=== PATIENT | female | born 1980 ===

== ENCOUNTER 2025-03-21 08:02 | Emergency (ER) | payer OTHER, SELFPAY ==
--- NOTE | ~2025-03-21 | CT_ITS ---
EXAMINATION: CT ABDOMEN PELVIS WITH IV CONTRAST HISTORY: abdominal pain COMPARISON: There are no prior studies for comparison. TECHNIQUE: CT scan of the abdomen and pelvis was performed following administration of 85 mL Omnipaque 350 using standard departmental protocol. Coronal and sagittal reformatted images were generated and reviewed. Oral contrast material was not administered at the request of the referring physician. This CT exam was performed with one or more of the following dose reduction techniques: automated exposure control, adjustment of the mA and/or kV according to patient size, use of iterative reconstruction technique. DLP: 957 mGy-cm FINDINGS: LOWER CHEST: The visualized lung bases are clear. There is no pleural effusion. CARDIOVASCULATURE: The heart is normal in size. There is no pericardial effusion. LIVER: The liver is normal in size and contour. There are subcentimeter hypodense foci in the left lobe of the liver and in the inferior right lobe which are too small to accurately characterize. The hepatic and portal veins are patent. GALLBLADDER / BILE DUCTS: The gallbladder is unremarkable. There is no intra or extrahepatic biliary ductal dilatation. SPLEEN: The spleen is normal in size. There is a calcification at the posterior aspect of the spleen. PANCREAS: The pancreas is unremarkable in appearance. ADRENAL GLANDS: Within normal limits. KIDNEYS/RETROPERITONEUM: No renal calculi are identified. There is no hydronephrosis. No renal masses are identified. LYMPH NODES: No abdominal or pelvic lymphadenopathy. VASCULATURE: The abdominal aorta is normal in caliber. MESENTERY/PERITONEUM: No free fluid. No masses. There is no free intraperitoneal gas. STOMACH: The stomach is unremarkable. SMALL BOWEL: The small bowel is normal in caliber. COLON: The colon is unremarkable. APPENDIX: The appendix is surgically absent. URINARY BLADDER/PELVIC ORGANS: The urinary bladder is collapsed, limiting evaluation. IUD is noted in the endometrial cavity of the uterus. The ovaries are unremarkable. BONES / SOFT TISSUES: There is degenerative disc disease of the spine. CT/CT abdomen pelvis w IV con IMPRESSION: Essentially unremarkable contrast-enhanced CT of the abdomen and pelvis. Incidental findings as discussed above. Electronically signed by: Kwabena De La Garza MD 03/21/2025 10:36 AM EDT
--- NOTE | ~2025-03-21 | US_ITS ---
EXAMINATION: US ABDOMEN LIMITED CLINICAL INFORMATION: Right upper quadrant abdominal pain. COMPARISON: Correlated to CT dated March 21, 2025 TECHNIQUE: Real-time ultrasound right upper quadrant abdomen using grayscale technique. Limited to the gallbladder. FINDINGS: Gallbladder is fluid-filled. No pericholecystic fluid collection or gallbladder wall thickening. Common bile duct measures 4 mm. No gross ascites. US/US abdomen limited IMPRESSION: No cholelithiasis. No gross choledocholithiasis. Electronically signed by: Manuel De La Garza MD 03/21/2025 11:50 AM EDT
[2025-03-21 08:24] VITALS: BP 142/80; PULSE 67; RESP 16; TEMP 36.9; O2SAT 99; BMI 44.6
--- NOTE | 2025-03-21 08:45 | ECG_ITS ---
Test Reason : abd pain Blood Pressure : */* mmHG Vent. Rate : 62 BPM Atrial Rate : 62 BPM P-R Int : 134 ms QRS Dur : 86 ms QT Int : 444 ms P-R-T Axes : 46 53 53 degrees QTcB Int : 450 ms Normal sinus rhythm Normal ECG No previous ECGs available Referred By: Yosi Link Electronically Signed By: YVETTE PEDERSEN MD
--- NOTE | 2025-03-21 08:48 | ED_ITS ---
HPI - Abdominal Pain General Chief Complaint: Abdominal Pain Stated Complaint: Abd pain Time Seen by Provider: 03/21/25 08:41 Source: patient Mode of arrival: ambulatory Limitations: no limitations History of Present Illness HPI narrative: This is a 44 years old female patient presented to emergency department with a chief complaint of upper abdominal pain. She has a history of appendectomy in the past, she has a history of QT prolongation she had a cardiac arrest after IV Reglan. MD elicited complaint: abdominal pain Pertinent past history: other ( Appendectomy) Onset (ago): day(s) (3) Location: none Quality: cramping Radiation: epigastric Migration to: no migration Exacerbating factors: nothing Relieving factors: nothing Associated symptoms: denies other symptoms Related Data Previous Rx's ?Medication ?Instructions ?Recorded oxycodone 5 mg tablet 5 mg PO Q6H PRN pain #8 tabs 03/21/25 sucralfate 100 mg/mL oral 5 ml PO QID 10 days #200 mL 03/21/25 suspension (Carafate) Allergies Allergy/AdvReac Type Severity Reaction Status Date / Time metoclopramide [From Reglan] Allergy Unresponsiv Verified 03/21/25 08:29 e ondansetron [From Zofran] Allergy Unresponsiv Verified 03/21/25 08:29 e tramadol Allergy Agitated Verified 03/21/25 08:29 Review of Systems Constitutional: Reports no additional constitutional complaints Reports system reviewed and no additional complaints, except as documented Cardiovascular: Reports no additional cardiovascular complaints [facility] Past Medical History Attestation statement: The following information was validated with the patient. [facility] Narrative: appendectomy, QT prolongation cardiac arrest secondary to IV Reglan Social History Social History Smoked in Last 30 Days: No Use of substances other than those prescribed or required for medical reasons: No Advance Directives: No Advance Directives Information Provided: Yes Patient : No Physical Exam ED Vital Signs: Vital Signs - 24 hr 03/21/25 08:24 03/21/25 12:19 Temperature 98.4 F 98.1 F Pulse Rate 67 65 Respiratory Rate 16 18 Blood Pressure 142/80 H 166/80 H Pulse Oximetry 99 97 Oxygen Delivery Method Room Air Room Air BMI result Body Mass Index 44.6 no acute distress Const General: cooperative Nutritional Appearance: well nourished Orientation/consciousness: patient oriented x3 Limitations: no limitations HENMT Head: Yes normal to inspection Ears: hearing grossly normal bilaterally General nose exam: Normal external nose present Face and sinus: Yes normal facial exam Neck Neck: Yes normal visual inspection Chest Chest palpation & inspection: normal inspection of the chest Resp Effort & Inspection: normal respiratory effort Auscultation: clear to auscultation bilaterally Cardio Jugular venous distension: no JVD Rate: regular rate Rhythm: regular rhythm GI Inspection: Yes normal to inspection Palpation (GI): Soft to palpation Auscultation: normal bowel sounds General: Yes Bimanual renal exam normal bilaterally External Female Exam: normal external appearance Skin General skin exam: no rashes or lesions noted Lesions: no lesions Rashes: no rashes Neuro General: patient oriented x3 Cranial nerves: Yes CN's II-XII intact bilaterally Gait exam (Neuro): Normal gait present Extrem General: Yes normal to inspection Course Reevaluation(s) Reevaluation #1: on re-examination patient is feeling better workup is negative including CT scan of the abdomen and pelvis ultrasound I think she can be discharged home Time: 13:25 Medical Decision Making Medical Decision Making [facility] Narrative: patient is here complaining of abdominal pain, broad differential diagnosis we will do labs CT Differential Diagnosis Differential Diagnoses: The differential diagnosis associated with the presentation includes colitis/ diverticulitis/cholecystitis Admission/Observation Consideration of admission/observation: Escalation of care including admission/observation considered Lab Data MDM Lab Attestation statement: I reviewed the patient's lab results. 03/21/25 08:54 03/21/25 08:54 Labs: Lab Results 03/21/25 03/21/25 Range/Units 08:54 09:57 WBC 9.3 (4.8-10.8) X10*3/uL RBC 4.06 L (4.20-5.50) X10*6/uL Hgb 13.5 (12.0-16.0) g/dl Hct 40.2 (37.0-47.0) % MCV 99.0 H (80.0-98.0) fL MCH 33.3 H (27.0-33.0) pg MCHC 33.6 (31.0-35.0) g/dl RDW 13.6 (11.0-16.0) % Plt Count 194 (160-400) X10*3/uL MPV 10.9 (9.4-12.3) fL Immature Gran % (Auto) 0.3 (0.0-0.4) % Neut % (Auto) 67.0 (45-73) % Lymph % (Auto) 24.6 (20-40) % [place] % (Auto) 5.3 (2-11) % Eos % (Auto) 2.4 (0-4) % Baso % (Auto) 0.4 (0-2) % Lymph # (Auto) 2.3 (1.2-4.9) X10*3/uL [place] # (Auto) 0.5 (0.1-1.2) X10*3/uL Eos # (Auto) 0.2 (0.0-0.4) X10*3/uL Baso # (Auto) 0.0 (0.0-0.2) X10*3/uL Abs Immat Gran (auto) 0.03 (0.00-0.03) X10*3/uL Absolute Neuts (auto) 6.3 (2.0-8.3) x10*3/uL Absolute Nucleated RBC 0.000 (0.0-0.012) X10*3/uL Nucleated RBC % (auto) 0.0 (0.0-0.2) /100WBC Sodium 139 (135-145) mmol/L Potassium 4.1 (3.3-5.1) mmol/L Chloride 105 (96-108) mmol/L Carbon Dioxide 25 (22-29) mmol/L Anion Gap 13 (12-20) BUN 13 (9-16) mg/dL Creatinine 0.72 (0.5-1.4) mg/dL Estim Creat Clear Calc 124.6 Estimated GFR > 60 Random Glucose 103 (60-115) mg/dL Calcium 9.2 (8.4-10.2) mg/dL Total Bilirubin 0.4 (0.0-1.0) mg/dL AST 19 (5-31) U/L ALT 17 (0-31) U/L Alkaline Phosphatase 125 H (39-117) U/L Total Protein 7.0 (6.5-8.0) g/dL Albumin 4.0 (3.5-5.0) g/dL Lipase 12 (8-78) U/L Beta HCG, Quant < 2 mIU/mL Urine Color DK YELLOW Urine Appearance Cloudy Urine pH 6.0 (5.0-9.0) Ur Specific Rosine 1.015 (1.005-1.025) Urine Protein Trace (Neg-Trace) mg/dL Urine Glucose (UA) Negative (Negative) mg/dL Urine Ketones Negative (Negative) mg/dL Urine Blood Large (3+) H (Negative) Urine Nitrite Negative (Negative) Ur Leukocyte Esterase Trace H (Negative) Urine RBC 3-5 H (0-2) /HPF Urine WBC 6-10 (0-5) /HPF Ur Squamous Epith Cells 3-5 (0-2) /HPF Urine Bacteria 2+ (None Seen) Hyaline Casts 0-2 (0-2) /LPF Urine Test NEGATIVE (NEGATIVE) Independent Interpretation I performed an independent interpretation of an: CT Scan Radiology Impression Discussion of test interpretation with radiology: I have reviewed the radiologist's reading. Independent Historian Clinical information obtained from an independent historian. History obtained from or confirmed by: Spouse Medications Administered Discontinued Medications Generic Name Dose Route Start Last Admin Trade Name Freq PRN Reason Stop Dose Admin Hydromorphone HCl 0.5 mg 03/21/25 08:45 03/21/25 09:01 Hydromorphone Hcl 0.5 Mg/0.5 Ml Syringe IVPUSH 03/21/25 08:46 0.5 mg ONCE ONE Administration Protocol Hydromorphone HCl 0.5 mg 03/21/25 09:52 03/21/25 10:02 Hydromorphone Hcl 0.5 Mg/0.5 Ml Syringe IVPUSH 03/21/25 09:53 0.5 mg ONCE ONE Administration Protocol Sodium Chloride 1,000 mls @ 999 mls/hr 03/21/25 08:45 03/21/25 09:50 Ns IVCONT 03/21/25 09:45 Infused .Q1H1M NARAYAN Infusion Iohexol 85 ml 03/21/25 10:17 03/21/25 10:17 Iohexol 350 Mg/Ml 100 Ml Infus..Btl IV 03/21/25 10:18 85 ml ONCE ONE Administration Ketorolac Tromethamine 15 mg 03/21/25 11:42 03/21/25 11:52 Ketorolac Tromethamine 15 Mg/Ml Vial IVPUSH 03/21/25 11:43 15 mg ONCE ONE Administration Sucralfate 1 gm 03/21/25 13:11 03/21/25 13:19 Sucralfate Oral Suspension 1 Gm/10 Ml Oral.Susp PO 03/21/25 13:12 1 gm ONCE ONE Administration Discharge Plan Discharge Clinical Impression: Abdominal pain Patient Disposition: Home, Self-Care Instructions: Abdominal Pain (ED) Additional Instructions: please call GI for follow-up appointment, make sure you take the Protonix that you have at home every day Prescriptions: New sucralfate [Carafate] 100 mg/mL suspension 5 ml PO QID 10 Days Qty: 200 0RF Rx Instructions: swish in mouth and swallow; use after food/drink oxycodone 5 mg tablet 5 mg PO Q6H PRN (Reason: pain) Qty: 8 0RF Rx Instructions: partial filing upon pt request; Partial Fill upon patient request. Referrals: Efraín Ashby MD [Physician] - 3 days Print Language: Luxembourgish
[2025-03-21] MEDS: 0.9 % Sodium Chloride 1,000 ML 999 ML IVCONT (08:55)
[2025-03-21 09:01] LABS: Basophils Percent Auto 0.4 % (0-2); Eosinophils Absolute Auto 0.2 X10*3/uL (0.0-0.4); Eosinophils Percent Auto 2.4 % (0-4); Hematocrit 40.2 % (37.0-47.0); Hemoglobin 13.5 g/dl (12.0-16.0); Imm Gran Abs Auto 0.03 X10*3/uL (0.00-0.03); Imm Gran Pct Auto 0.3 % (0.0-0.4); Lymphocytes Absolute Auto 2.3 X10*3/uL (1.2-4.9); Lymphocytes Percent Auto 24.6 % (20-40); MANUAL DIFF FLAG NO; Mean Corpuscular HGB Conc 33.6 g/dl (31.0-35.0); Mean Corpuscular Hemoglobin 33.3 pg (27.0-33.0); Mean Platelet Volume 10.9 fL (9.4-12.3); Monocytes Absolute Auto 0.5 X10*3/uL (0.1-1.2); Monocytes Percent Auto 5.3 % (2-11); Neutrophils Absolute Auto 6.3 x10*3/uL (2.0-8.3); Platelet Count 194 X10*3/uL (160-400); Red Blood Count 4.06 X10*6/uL (4.20-5.50); Red Cell Distribution Width 13.6 % (11.0-16.0); White Blood Count 9.3 X10*3/uL (4.8-10.8)
[2025-03-21] MEDS: HYDROmorphone HCl 0.5 MG/0.5 ML SYRINGE IVPUSH ×2 (09:01→10:02)
--- OUTSIDE RECORDS SUMMARY | 2025-03-21 09:01 | XMS_ITS | Continuity of Care Document ---
Author Organization [facility] vices Address [address] [place] [address] Phone Care Team Providers Care Training Officer Name Role Phone Unavailable Unavailable Unavailable Allergies, [...] Diagnoses Date Provider Providers Copied on Encounter [facility], [address] [place], [address], [place] tel:[phone] [facility] Adult Medicine No Information 3 No Information [facility], [address] [place] [address], [address], [place] tel:[phone] Conversion PAIN IN JOINT, LOWER LEG 3 No Information [facility], [address] [place], [address], [place] tel:[phone] Conversion No Information 3 No Information [facility], [address] [place] [address], [address], [place] tel:[phone] Conversion No Information 3 No Information [facility], [address] [place] [address], [address], [place] tel:[phone] [facility] Adult Medicine No Information 3 No Information [facility], [address] [place] [address], [address], [place] tel:[phone] Conversion ANXIETY STATE, UNSPECIFIED 2 No Information [facility], [address] [place] [address], [address], [place] tel:[phone] Conversion No Information 2 No Information [facility], [address] [place] [address], [address], [place] tel:[phone] Historic Immunization Location No Information 2 No Information [facility], [address] [place] [address], [address], [place] tel:[phone] Conversion OTHER ACUTE PAIN 2 No Information [facility], [address] [place] [address], [address], [place] tel:[phone] [facility] Adult Medicine No Information 2 No Information [facility], [address] [place] [address], [address], [place] tel:[phone] Conversion LUMBAGO 2 No Information Family History [...]
--- OUTSIDE RECORDS SUMMARY | 2025-03-21 09:01 | XMS_ITS | Clinical Summary ---
Author Organization [facility] Address [address] [place] [address] Care Team Providers Care Collision Center Manager Name Role Phone Unavailable Primary Care Provider Unavailabl e Medical History Medical History Date Comments Cardiac arrest (CMS/HCC V24, CMS/HCC V28) DX:Cardiac arrest (HCC);[facility] ENT:from QT syndrome Social History Tobacco Use Types Packs/Day Years Used Date Smoking Tobacco: Never Assessed Comments Unknown Sex and Gender Information Value Date Recorded Sex Assigned at Not on file Legal Sex Female 7:32 PM EST Gender Identity Not on file Sexual Orientation Not on file Obstetrics History Plan of Treatment Health Maintenance Due Date Last Done Comments Breast Cancer Screening 1979 DTaP,Tdap,and Td Vaccines (1 - Tdap) 1998 Hepatitis B Vaccines (1 of 3 - 19+ 3-dose series) 1998 Cervical Cancer Screening: P ap Smear 2000 COVID-19 Vaccine (2023-2 5 season) 2024 Influenza Vaccine (Season Ended) 2025 HIB Vaccines Aged Out No longer eligi ble based on patient's age to complete this topic HPV Vaccines Aged Out No longer eligi ble based on patient's age to complete this topic Hepatitis A Vaccines Aged Out No long er eligible based on patient's age to complete this topic IPV Vaccines Aged Out No longer eligi ble based on patient's age to complete this topic MMR Vaccines Aged Out No longer eligi ble based on patient's age to complete this topic Meningococcal ACWY Vaccine Aged Out N o longer eligible based on patient's age to complete this topic Meningococcal B Vaccine Aged Out No l onger eligible based on patient's age to complete this topic Pneumococcal Vaccine: Pediat rics (0 to 5 Years) and At-Risk Patients (6 to 64 Years) Aged Out No longer eligible b ased on patient's age to complete this topic RSV Immunization Patients Un roberta 20 months Aged Out No longer eligible b ased on patient's age to complete this topic Varicella Vaccines Aged Out No longer eligible based on patient's age to complete this topic
--- OUTSIDE RECORDS SUMMARY | 2025-03-21 09:01 | XMS_ITS ---
Author Organization [facility] Address [address] [place] [address] Care Team Providers Care Retail Supervisor Name Role Phone AncaamishaStuart gr Unavailable [phone] Manpreet BRIGGS, Juanjo Unavailable Unavailable Juanjo Case Unavailable [phone] Allergies Allergen (clinical drug ingredient) Drug/Non Drug Allergy documented on EMR Reaction Allergy Type Onset Date Status metoclopramide Reglan Unknown Drug Allergy Ac tive tramadol Tramadol Unknown Drug Allergy Active REASON FOR VISIT Annual Dr. lidia terrazas Medications Medication SIG (Take, Route, Frequency, Duration) Notes Start Date End Date Status Vitamin D3 Active Ibuprofen 600 MG 1 tablet with food o r milk as needed Orally every 6 hrs for 10 days 03/04/2022 Not-Taking Gabapentin 300 MG 1 capsule Orally TID for 10 days 03/04/2022 Not-Taking Vitamin B12 Active Mirena placed 2019 Active Naprosyn 500 MG 1 tablet with food o r milk as needed Orally every 12 hrs Active Folic Acid Active Acetaminophen 500 MG 2 tablet as needed Orally every 6 hrs for 10 days 03/04/2022 Not-Taking Social History Tobacco Use: Social History Observation Description Date Details (start date - stop date) Current Smoker NA - NA Tobacco Use/Smoking Question Answer Notes Are you a current smoker How many cigarettes a day do you smoke? 11-20 Sexual History Question Answer Notes Had sex in the past 12 months (vaginal, oral, or anal)? Yes Use protection? Yes Have you ever had a Sexually transmitted disease ? No Encounters Encounter Location Date Provider Diagnosis [facility] [address] [place] [address] 11/16/2023 Juanjo Case Encounter for gynecological examination (general) (routine) without abnormal findings Z01.419 and Visit for screening mammogram Z12.31 Assessments Encounter Date Diagnosis (ICD Code) Assessment Notes Treatment Notes Treatment Clinical Notes Section Notes 11/16/2023 Encounter for gynecological examination (general) (routine) without abnormal findings (ICD-10 - Z01.419) 11/16/2023 Visit for screening mammogram (ICD-10 - Z12.31) Plan Of Treatment No Information Progress Notes * Joanna RUEDA MDOB:1980 (44 yo F)Acc No.[id number]:11/16/2023 Progress Note Patient:?Joanna RUEDA Provider:?Juanjo Case MD :1980???Age:42 Y???Sex:Female D ate:11/16/2023 Address:[address] [place], [place] [address], [id number] Subjective: * Chief Complaints: * ???1. Annual Dr. murillo seran. * HPI: ???General Health Maintenance:?42 year old female presents with c/o Annual Exam.?Annual:?Annual exam?Tobacco Use?: ?Diabetes Screening?: ?Hypertension Screening?: ?Mental Health?: ?Breast Cancer Screening?: * ROS:?General/Constitutional:?Patient denies?change of weight, fever, and fatigue.?ENT:?Patient denies?difficulty swallowing.?Endocrine:?Patient denies?thyroid problems.?Respiratory:?Patient denies?shortness of breath and respiratory symptoms.?Breast:?Patient denies?breast lumps, breast pain, nipple discharge.?Cardiovascular:?Patient denies?chest pain and dyspnea.?Gastrointestinal:?Patient denies?abdominal pain and change in bowel habits.?Genitourinary:?Patient denies?abnormal vaginal bleeding, vaginal discharge, dyspareunia, and UTI symptoms.?Musculoskeletal:?Patient denies?painful joints, muscle weakness.?Skin:?Patient denies?new lesions and rash.? * Medical History:?Cardiac Arr est, Anemia, Pacemaker, Threatened , Urine leakage, Prolonged QT syndrome, COVID19 vaccine series completed: (plans to get booster). 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 control (Historical)?Mirena placed 2018.?Safe Sex Practices (Historical) ?Condom Use?n/a ???Last Pap Smear/HPV Date (Historical)?08/19/2022 wnl negative HPV08/2021- abnormal pos HR HPV per pt04/07/2017 - WNL + HPV repeat pap in wnl.? * OB History:? History (GPA)?Total Pregnancies?8 ?Full Term?5 ?Premature?0 ?AB. Induced?0 ?AB. Spontaneous?3 one was a twin loss in 1st trimester ?AB. Elective?0 ?AB. Therapeutic?0 ?Ectopics?1 ?Multiple Births?0 ?Living?5 ?Vaginal Deliveries?5 ?C-Sections?0 ???GP?:?8 ?Para:?5 ??? # 1:?08/25/2003 , normal spontaneous vaginal delivery (), Baby Weight:6lbs 40z, male Baby 3 months later from SIDS.? # 2:?01/10/2006, normal spontaneous vaginal delivery (), Baby weight:6lbs 5oz, female, no complications.? # 3:?12/28/2007 , normal spontaneous vaginal delivery (), Baby Weight:6lbs , female, no complications.? # 4:?2008 , spontaneous .? # 5:?02/13/2010 , normal spontaneous vaginal delivery (), Baby Weight 5lbs 8oz, female, no complications.? # 6:?07/03/2011 , normal spontaneous vaginal delivery (), Baby Weight 6lbs 3oz, maleTwin w/ one loss in 1xt trimester.? # 7:?2011 , ectopic.? # 8:?Anesth :Epidural BirthDate :10/22/2017 BirthLbs :7 BirthOzs :4 Comment : Weight: 7.4 DeliveryType :Vaginal GA :39 Place :mrsv PTL :N Sex :M.? * Surgical History:?Appendecto my , Back surgery , D&C , Heart Repair , IUD Insertion-done at another office 2018, RT fallopian tube removal , TVT mesh mid-urethral sling and Cystoscopy on 03-04-[address] Stuart Elizabeth . * Hospitalization/Major Diagno stic Procedure:?See surgical hx . * Family History:?Mother: diab eticmom from stomach cancer, diagnosed with Unspecified essential hypertension, Other malignant neoplasm of unspecified site.?Father: Dad from a brain cancer, diagnosed with Other malignant neoplasm of unspecified site.?Maternal Grand Mother: Maternal grandmother had 7 strokes, diagnosed with Unspecified cerebral artery occlusion with cerebral infarction.?Siblings: diabetic, htn.?brother: , diagnosed with Other malignant neoplasm of unspecified site.? * Social History:?Tobacco Use:?Tobacco Use/Smoking?Are you a?current smoker ?How many cigarettes a day do you smoke??11-20 ???Sexual History:?Sexual History?Had sex in the past 12 months (vaginal, oral, or anal)??Yes ?Use protection??Yes ?Have you ever had a Sexually transmitted disease??No ???Drugs/Alcohol:?Drugs?Have you used drugs other than those for medical reasons in the past 12 months??No ?Alcohol Screen?Never.?Miscellaneous:?Marital status: . ?Occupation: unemployed. ???Household:?Household?Marital Status: .? * Medications:?Taking Folic Ac id , Taking Mirena , Notes to Pharmacist: placed 2019, Taking Naprosyn(Naproxen) 500 MG Tablet 1 tablet with food or milk as needed Orally every 12 hrs , Taking Vitamin B12 , Taking Vitamin D3 , Not-Taking/PRN Acetaminophen 500 MG Tablet 2 tablet as needed Orally every 6 hrs , Not-Taking/PRN Gabapentin 300 MG Capsule 1 capsule Orally TID , Not-Taking/PRN Ibuprofen 600 MG Tablet 1 tablet with food or milk as needed Orally every 6 hrs * Allergies:?Tramadol, Reglan. Objective: * Vitals:? * Examination: ???General Examination: ?GENERAL APPEARANCE:?pleasant, well nourished, in no acute distress.?EYES:?non icteric, no pallor.?NECK/THYROID:?normal, no thyromegaly, no thyroid nodules.?LYMPH NODES:?normal, no palpable adenopathy.?SKIN:?no suspicious lesions, warm and dry.?HEART:?regular rate and rhythm.?LUNGS:?clear to auscultation bilaterally.?BREASTS:?nipples unremarkable, no axillary adenopathy, no dimpling, no lumps palpated bilaterally, no nipple discharge, no skin changes.?ABDOMEN:?normal, no masses, liver non-tender.?Gynecological: ?BLADDER:? normal.?EXTERNAL GENITALIA:? normal, no erythema, no skin discoloration.?URETHRAL MEATUS:? normal.?URETHRA:? normal, no masses, non-tender.?VAGINA:? no lesions, normal.?CERVIX:?no lesions or discharge or bleeding, normal appearing.?UTERUS:?normal mobility, nontender, normal size, shape and consistency.?ADNEXA:? no masses or tenderness bilaterally.?DIGITAL RECTAL EXAM?....?Lead Pastor: ?Lead Pastor Status?..? Assessment: * Assessment: 1.?Encounter for gynecologic al examination (general) (routine) without abnormal findings - Z01.419 (Primary)???2.?Visit for screening mammogram - Z12.31??? Plan: * Treatment: * Preventive Medicine:? ??Counseling for Annual Visits:?Counseled On?Alcohol Awareness:?: ?Tobacco Awareness:?: ??Risk Factor Reduction:?Annual 40-64?Sexuality?Yes ?Fitness and Nutrition?Yes ?Psychosocial Evaluation?Yes ?Cardiovascular Risk Factors?Yes ?Health and Risk Assessment?Yes ?Counseled On: Tobacco, Alcohol, Drug Use?Yes ?Notes:?it is recommended that you visit a Primary Care Provider (PCP) regularly. Your PCP can help you coordinate care among your specialists, as well as make sure you are up to date with wellness exams, immunizations, and preventive screenings. If you do not have a PCP, please ask your provider for information * Billing Information: * Visit Code:? * Procedure Codes:? * Electronic signature of Jose Case MD on 03/21/2025 at 09:01 AM EDT Sign off status: Pending Visit Status:?N/S (No-Show) * Provider:?Juanjo Case MD Date:?11/16 Generated for Aminah billingsley/Antonina/Dinora on:?03/21/2025 09:01 AM EDT History and Physical Notes * HPI (History of Present Illness) Category Sub-Category Detail Notes Category Not es General Health Maintenance Annual Exam Annual Annual exam Tobacco Use: : Diabetes Screening: : Hypertension Screening: : Mental Health: : Breast Cancer Screening: : Examination Category Sub-Category Detail Notes Category Not es Gynecological CERVIX: no lesions or di scharge or bleeding, normal appearing VAGINA: no lesions, normal EXTERNAL GENITALIA: normal, no erythema, no skin discoloration UTERUS: normal mobility, non tender, normal size, shape and consistency ADNEXA: no masses or tendern ess bilaterally URETHRA: normal, no masses, n on-tender URETHRAL MEATUS: normal BLADDER: normal DIGITAL RECTAL EXAM ... General Examination GENERAL APPEARANCE: pleasant , well nourished, in no acute distress EYES: non icteric, no pall or NECK/THYROID: normal, no thyromega ly, no thyroid nodules HEART: regular rate and rhy thm LUNGS: clear to auscultatio n bilaterally ABDOMEN: normal, no masses, l iver non-tender SKIN: no suspicious lesion s, warm and dry BREASTS: nipples unremarkable , no axillary adenopathy, no dimpling, no lumps palpated bilaterally, no nipple discharge, no skin changes LYMPH NODES: normal, no palpable adenopathy Lead Pastor Lead Pastor Status .
--- OUTSIDE RECORDS SUMMARY | 2025-03-21 09:02 | XMS_ITS | Continuity of Care Document ---
Author Organization [facility] Address [address] [place] [address] Phone Care Team Providers Care Loan Underwriter Name Role Phone Levy Miramontes MD Unavailable [...] on Encounter [facility], [address] [place] [address], [facility], tel: [phone] [facility] Office No Information 4 Spomar Levy. [address], [address], [place], [place], [address] [place] [address] , . tel: [phone] OV,F/U,EXPAN D PROB HX,SF [facility], [address] [place] [address], [facility], tel: [phone] [facility] Body mass index (BMI) 40.0-44.9, adultNeck pain 3 Spomar Levy. [address], [address] , [place], [place], [address] [place] [address] , [place]. tel: [phone] Referring Provider: Randall Licea, [address], [place], [place], [facility]. tel:[phone] [facility], [address] [place] [address], [facility], tel: [phone] [facility] Cervical radiculopathyNumbnes s and tingling of upper extremityParesthesia of skin March-0 3 Spomar Levy. [address], [address] , [place], [place], [id number] , [place]. tel: [phone] OV, NEW, DETAIL, DETAIL, [facility], [address] [place] [address], [facility], tel: [phone] [facility] Neck painCervical radiculopathyNumbnes s and tingling of upper extremityParesthesia of skin Feb-0 2- 3 Spomar Levy. [address], [address] , [place], [place], [id number] , [place]. tel: [phone] Referring Provider: Randall Licea, [address], [facility], [place], [facility]. tel:[phone] Family History Family Member Type Diagnosis Age At Onset No Information Payers Payer name Insurance type Covered green party ID Authoriza tion(s) [employer] [place] [employer] [place] [id number] Social History Type Description Quantity Date Captured [...] To: Ismael BRIGGS, Kofi Esquivel [address] [facility]
[address] [place], [phone] Ordered: Referrals: Physical Medicine and Rehabilitation. Ismael BRIGGS, Kofi Nuñez Evaluate and treat ordered Referral Ordered: MRI Cervical Spine Without Contrast Appointment date/timeframe: 03/05/2023 ordered Referral Ordered: Cervical Spine AP/LAT/FLEX/EXT (CPT: 30174) Appointment date/timeframe: 6 Weeks ordered Patient Education [...]
--- OUTSIDE RECORDS SUMMARY | 2025-03-21 09:02 | XMS_ITS | Clinical Summary ---
Author Organization [facility] Address [address] [place] [address] Care Team Providers Care Device Test Engineer Name Role Phone Unavailable Primary Care Provider Unavailabl e Allergies Active Allergy Reactions Criticality Noted Date Comments Lorazepam 12/07/2019 Metoclopramide 12/07/2019 Tramadol 12/07/2019 Medications No known medications Social History Tobacco Use Types Packs/Day Years Used Date Smoking Tobacco: Never Assessed Sex and Gender Information Value Date Recorded Sex Assigned at Female 12/07/2019 11:08 PM EST Gender Identity Not on file Sexual Orientation Not on file Last Filed Vital Signs Vital Sign Reading Time Taken Comments Blood Pressure 129/81 12/07/2019 10:49 PM EST Pulse 64 12/07/2019 10:49 PM EST Temperature 36.8 ??C (98.3 ??F) 12/07/2019 10:[address] Respiratory Rate 18 12/07/2019 10:49 PM EST Oxygen Saturation 100% 12/07/2019 10:49 PM EST Inhaled Oxygen Concentration - - Weight - - Height - - Body Mass Index - - Plan of Treatment Health Maintenance Due Date Last Done Comments Hepatitis B Vaccines (1 of 3 - 3-dose series) 1979 Hepatitis C Screening 1979 COVID-19 Vaccine (#1) 06/15/1980 Depression Screening 1991 Preventative Health Evaluation 1997 DTap / Tdap / Td (1 - Tdap) 1998 Cervical Cancer Screening (P ap Smear) 2000 Influenza Vaccine (#1) 2024 Colon Cancer Screening (Colonoscopy) 2024 Pneumococcal Vaccine Aged Out No long er eligible based on patient's age to complete this topic RSV Ped < 20 months Aged Out No longe r eligible based on patient's age to complete this topic
--- OUTSIDE RECORDS SUMMARY | 2025-03-21 09:02 | XMS_ITS | Patient Health Record ---
Author Organization [facility] Address [address] [place] [address] Care Team Providers Care Early Interventionist Name Role Phone Stuart Elizabeth Unavailable [phone] Juanjo Case MD Unavailable Unavailable Allergies Allergen (clinical drug ingredient) Drug/Non Drug Allergy documented on EMR Reaction Allergy Type Onset Date Status metoclopramide Reglan Unknown Drug Allergy Ac tive tramadol Tramadol Unknown Drug Allergy Active Reason For Referral No Information Medications Medication SIG (Take, Route, Frequency, Duration) Notes Start Date End Date Status Vitamin D3 Active Naprosyn 500 MG 1 tablet with food o r milk as needed Orally every 12 hrs Active Folic Acid Active Acetaminophen 500 MG 2 tablet as needed Orally every 6 hrs for 10 days 03/04/2022 Not-Taking Ibuprofen 600 MG 1 tablet with food o r milk as needed Orally every 6 hrs for 10 days 03/04/2022 Not-Taking Gabapentin 300 MG 1 capsule Orally TID for 10 days 03/04/2022 Not-Taking Vitamin B12 Active Mirena placed 2018 Active Social History Tobacco Use: Social History Observation [...] had a Sexually transmitted disease ? No Problems Problem Type SNOMED Code ICD Code Onset Dates Problem Status W/U Status Risk Notes Problem 04738613 YOLANDA (stress urinary incontinence, female) (N39.3) Active confirmed Problem Pre-procedure evaluation check (895074408) *Pre-operative examination (Code also - reason for the procedure) (Z01.818) Active confirmed Problem 835817275 Morbid obesity (E66.01) Active confirmed Problem 393319312 History of IA (myocardial infarction) (I25.2) Active confirmed Problem 646337595 History of stroke (Z86.73) Active confirmed Problem 852980711 OAB (overactive bladder) (N32.81) Active confirmed Problem 768816419 Visit for screening mammogram (Z12.31) Active confirmed Problem 054480293 Screening for cervical cancer (Z12.4) Active confirmed Problem 708937697 Screening for HPV (human papillomavirus) (Z11.51) Active confirmed Problem Threatened in third trimester (09457692) Threatened in third trimester (O20.0) 0 Active confirmed Problem Cardiac pacemaker in situ (528277521) Artificial pacemaker (Z95.0) 0 Active confirmed Plan Of Treatment Pending Test Test Name Order Date *Screen Mammo b/l w/ Stanley and US if need ed per protocol 08/19/2022 Insurance Providers Payer Name Payer Address Payer Phone Subscriber Number Group Number Insured Name Patient Relationship to Insured Coverage Start Date Coverage End Date [employer] [address] [address] [place] [address] [id number] Joanna Rueda Self - patient is the insured Medical (General) History Medical History History ICD Code Cardiac Arrest Anemia Pacemaker Threatened Urine leakage Prolonged QT syndrome COVID19 vaccine series completed: (plans to get booster) Surgical History Surgery Date(Month/Year) Appendectomy Back surgery D&C Heart Repair IUD Insertion-done at another office 201 9 RT fallopian tube removal TVT mesh mid-urethral sling and Cystoscopy on 03-04-[address] Stuart Elizabeth Hospitalization History Reason Date(Month/Year) See surgical hx
[2025-03-21 09:21] LABS: Alanine Aminotransferase 17 U/L (0-31); Alkaline Phosphatase 125 U/L (39-117); Anion Gap 13 (12-20); Aspartate Amino Transferase 19 U/L (5-31); Bilirubin Total 0.4 mg/dL (0.0-1.0); Blood Urea Nitrogen 13 mg/dL (9-16); Calcium 9.2 mg/dL (8.4-10.2); Carbon Dioxide 25 mmol/L (22-29); Chloride 105 mmol/L (96-108); Creatinine Clr Calc Pharmacy 124.6; Estimated Glomerular Filt Rate > 60; Glucose Random 103 mg/dL (60-115); Lipase 12 U/L (8-78); Potassium 4.1 mmol/L (3.3-5.1); Sodium 139 mmol/L (135-145)
--- NOTE | 2025-03-21 09:53 | PC.NURSE ---
Pt in roomm, crying and holding RUQ stating no pain relief with meds gv; MD made aware; will treat per orders
[2025-03-21 10:10] LABS: UPreg QC Valid YES; Urine Pregnancy NEGATIVE (NEGATIVE)
[2025-03-21 10:17] LABS: Appearance Urine Cloudy; Color Urine DK YELLOW; Glucose Urine UA Negative (Negative); Leukocyte Esterase Urine Trace (Negative); Nitrite Urine Negative (Negative); Specific Gravity - Urine 1.015 (1.005-1.025); UMIC TRIGGER UACC YES; Urine Blood Large (3+) (Negative); Urine Ketones Negative (Negative); Urine Protein Trace mg/dL (Neg-Trace)
[2025-03-21] MEDS: iohexoL 350 MG/ML 100 ML INFUS..BTL 85 ML IV (10:17)
[2025-03-21 10:22] LABS: Bacteria Urine 2+ (None Seen); Hyaline Casts Urine 0-2 /LPF (0-2); UACC Culture Trigger YES
[2025-03-21 11:51] LABS: HCG Quantitative < 2 mIU/mL
[2025-03-21] MEDS: Ketorolac Tromethamine 15 MG/ML VIAL IVPUSH (11:52)
[2025-03-21 12:19] VITALS: BP 166/80; PULSE 65; RESP 18; TEMP 36.7; O2SAT 97
[2025-03-21] MEDS: Sucralfate Oral Suspension 1 GM/10 ML ORAL.SUSP PO (13:19)
[2025-03-21 13:36] VITALS: BP 166/80; PULSE 65; RESP 18; TEMP 36.7; O2SAT 97
== END 2025-03-21 13:36 | disposition home or self-care (01) ==
PROVIDERS: Emergency Provider Emergency Medicine
DX: R10.13 Epigastric pain (principal)
CPT/HCPCS: 36415; 74177; 76705; 80053; 81001; 81025; 83690; 84702; 85025; 87086; 93005; 96361; 96374; 96375; 96376; 99284; 99285; J1171; J1885; Q9967

== ENCOUNTER → 2025-03-21 08:45 | Outpatient (BNV) | payer OTHER, SELFPAY | PROVIDERS: Emergency Provider Emergency Medicine; Visit Provider Internal Medicine Cardiovascular Disease | DX: R10.9 Unspecified abdominal pain (principal) | CPT/HCPCS: 93010 ==

== ENCOUNTER → 2025-03-21 08:46 | Outpatient (BNV) | payer OTHER, SELFPAY | PROVIDERS: Emergency Provider Emergency Medicine; Visit Provider Radiology Diagnostic Radiology | DX: R10.11 Right upper quadrant pain (principal) | CPT/HCPCS: 74177; 76705 ==

== ENCOUNTER 2025-04-09 07:46 | Emergency (ER) | payer OTHER, SELFPAY ==
--- NOTE | ~2025-04-09 | XR_ITS ---
CLINICAL HISTORY: fall landed on rt hand arm 2 view right forearm Comparison: None Findings: No fractures or dislocations. No joint effusion. No significant arthritic change. No radiopaque foreign body. IMPRESSION: 1. No acute fracture. This document has been electronically signed by: Shelly Reed MD on 04/09/2025 08:55:32
--- NOTE | ~2025-04-09 | XR_ITS ---
CLINICAL HISTORY: fall landed on rt hand arm 4 view right hand Comparison: None Findings: No fractures or dislocations. No significant arthritic change. No erosions. No radiopaque foreign body. IMPRESSION: 1. No acute fracture This document has been electronically signed by: Shelly Reed MD on 04/09/2025 08:59:37
[2025-04-09 07:50] VITALS: BP 149/80; PULSE 70; RESP 16; TEMP 36.3; O2SAT 94; BMI 44.6
--- NOTE | 2025-04-09 08:03 | ED.EXTPRO ---
HPI - Extremity Problem General Chief complaint: Extremity Injury, Upper Stated complaint: R hand pain, fall thursday Time Seen by Provider: 04/09/25 08:02 Source: patient and family () Mode of arrival: ambulatory Limitations: no limitations History of Present Illness ED Provider: LEVY SPENCER PA-C HPI Narrative: 44-year-old right hand dominant female presents to the ED today for evaluation of right thumb pain s/p fall 3 days ago. Patient reports losing her balance and falling forward onto right outstretched hand. Denies head strike or LOC. She is not on anticoagulation. Since this time has had pain along her right thumb, now extending proximally up her right forearm. Pain is worse with movement of the right thumb. She has trialed Tylenol and Motrin at home without improvement. Applying ice without much relief. Denies any numbness/tingling/weakness of the right upper extremity. Related Data Previous Rx's ?Medication ?Instructions ?Recorded oxycodone 5 mg tablet 5 mg PO Q6H PRN pain #8 tabs 03/21/25 sucralfate 100 mg/mL oral 5 ml PO QID 10 days #200 mL 03/21/25 suspension (Carafate) oxycodone 5 mg tablet 5 mg PO Q8H PRN pain (scale score 04/09/25 7-10) #9 tabs Allergies Allergy/AdvReac Type Severity Reaction Status Date / Time metoclopramide [From Reglan] Allergy Unresponsiv Verified 04/09/25 07:52 e ondansetron [From Zofran] Allergy Unresponsiv Verified 04/09/25 07:52 e tramadol Allergy Agitated Verified 04/09/25 07:52 Review of Systems Review of Systems: Constitutional: No fever, chills, fatigue, night sweats, weight changes ENT/Mouth: No ear pain, hearing loss, nasal congestion, sinus pain, rhinorrhea, sore throat Eyes: No eye pain, swelling, redness, vision changes, discharge Cardio: No chest pain, palpitations, MEDEROS, orthopnea, peripheral edema Pulm: No SOB, cough, sputum, wheezing, dyspnea, hemoptysis GI: No nausea, vomiting, hematemesis, abdominal pain, diarrhea, constipation, hematochezia, melena : No irregular bleeding, dysuria, frequency, urgency, hesitancy, hematuria, flank pain, urinary flow changes, urinary incontinence or retention MSK: No back pain, neck pain, joint pain, myalgias, +right thumb pain Skin: No lesions, rashes Neuro: No weakness, numbness, paresthesias, LOC, dizziness, headache Psych: No anxiety/panic, depression, SI/HI, AH/VH All other systems reviewed and are negative. Yes all other systems are reviewed and are negative [facility] Past Medical History Attestation statement: The following information was validated with the patient. Source: old records reviewed, obtained from family and nursing notes reviewed Social History Social History Smoked in Last 30 Days: No Use of substances other than those prescribed or required for medical reasons: No Advance Directives: No Advance Directives Information Provided: Yes Do you have a plan to hurt others: No Plan Patient : No Physical Exam Vital Signs: Vital Signs: Last Vital Signs Temp 98.0 F 04/09/25 08:44 Pulse 73 04/09/25 08:44 Resp 18 04/09/25 08:44 BP 169/82 H 04/09/25 08:44 Pulse Ox 96 04/09/25 08:44 O2 Del Method Room Air 04/09/25 08:44 BMI result Body Mass Index 44.6 Hypertensive, vitals otherwise WNL General: Well appearing, in no acute distress. Skin: Warm, dry, intact. No rashes or lesions. Head: Normocephalic, atraumatic. EENT: Hearing is intact b/l. Conjunctiva clear. Sclera is anicteric. PERRLA. EOM intact. Moist mucous membranes.? Cardiac: Chest wall symmetric. RRR. Lungs: Normal respiratory effort without accessory muscle use. CTA bilaterally Ext: +right thumb with noted swelling, no deformity. Diffusely tender to palpation, no warmth/crepitus/fluctuance. Positive snuffbox tenderness. Full active ROM intact to right thumb with pain. FROM intact to right wrist, no pain. SILT. 2+ radial pulse intact. Neuro: AOx3. Normal speech. Ambulating with steady gait. Course Course Course Narrative: xrs right hand/forearm unremarkable. Given snuffbox tenderness, concern for scaphoid fracture. patient placed in thumb spica splint. see procedure note. medicated w/ toradol in ED. advised to f/u with ortho this week, referral provided. oxycodone sent for breath through pain. Patient has remained stable throughout ED visit today. Discussed worrisome signs and symptoms and when to return to the ED. All questions answered at this time. Patient is agreeable with disposition and stable for discharge. Medications Administered Discontinued Medications Generic Name Dose Route Start Last Admin Trade Name Freq PRN Reason Stop Dose Admin Ketorolac Tromethamine 30 mg 04/09/25 08:36 04/09/25 08:44 Ketorolac Tromethamine 30 Mg/Ml Vial IM 04/09/25 08:37 30 mg ONCE ONE Administration Medical Decision Making Medical Decision Making MDM Narrative: 44-year-old right hand dominant female presents to the ED today for evaluation of right thumb pain s/p fall 3 days ago. Patient is hypertensive, vitals otherwise WNL. She is nontoxic appearing in no acute distress. on exam of right hand, right thumb with noted swelling, no deformity. Diffusely tender to palpation, no warmth/crepitus/fluctuance. Positive snuffbox tenderness. Full active ROM intact to right thumb with pain. FROM intact to right wrist, no pain. SILT. 2+ radial pulse intact. Differential diagnosis includes fracture, scaphoid fracture, msk sprain/strain, contusion. Unlikely NV compromise, threat to limb, compartment syndrome. Plan for imaging, pain control, and re-evaluation. Differential Diagnosis Differential Diagnoses: The differential diagnosis associated with the presentation includes as above. Admission/Observation not indicated Independent Interpretation I performed an independent interpretation of an: Plain X-Ray Interpretation: xr right hand/forearm without fracture Radiology Impression Discussion of test interpretation with radiology: I have reviewed the radiologist's reading. Radiologist Impression: Date of Service: 04/09/25 Procedure(s): XR hand RT min 3V Accession Number(s): [id number] cc: Jayda Flaherty DO; Physician,Unknown ~ CLINICAL HISTORY: fall landed on rt hand arm 4 view right hand Comparison: None Findings: No fractures or dislocations. No significant arthritic change. No erosions. No radiopaque foreign body. IMPRESSION: 1. No acute fracture This document has been electronically signed by: Shelly Reed MD on 04/09/2025 08:59:37 Date of Service: 04/09/25 Procedure(s): XR forearm RT 2V Accession Number(s): [id number] cc: Jayda Flaherty DO; Physician,Unknown ~ CLINICAL HISTORY: fall landed on rt hand arm 2 view right forearm Comparison: None Findings: No fractures or dislocations. No joint effusion. No significant arthritic change. No radiopaque foreign body. IMPRESSION: 1. No acute fracture. This document has been electronically signed by: Shelly Reed MD on 04/09/2025 08:55:32 Independent Historian Clinical information obtained from an independent historian. History obtained from or confirmed by: Spouse External Record Review External record reviewed: Inpatient record Prescription Management I considered prescription management with: Pain Medication (oxycodone) Social Determinants Patient?s care significantly limited by Social Determinants of Health including: Other Social Determinant of Health Procedures Orthopedic Splinting/Casting Injury #1: Side: right Upper Extremity Injury Location: finger (thumb) Upper Extremity Immobilizer: sling/shoulder immobilizer and thumb spica Critical Care Time Critical Care Time Critical Care Time: No Discharge Plan Discharge Clinical Impression: Injury of thumb, right Patient Disposition: Home, Self-Care Instructions: Scaphoid Fracture (ED) Additional Instructions: You have been evaluated in the Emergency Department today for right thumb pain. Your x-rays do not demonstrate a fracture however your physical exam is concerning for scaphoid fracture. See home care instructions. I have placed your right thumb in a splint today. Avoid getting the splint wet. We have provided sling for you to use while you heal. Please rest and elevate the affected area above heart level to minimize swelling. I recommend you take 600mg ibuprofen every 6 hours or tylenol 650mg every 6 hours as needed for pain. If needed, you can alternate these medications so that you take one medication every 3 hours. For example, at noon take ibuprofen, then at 3pm take tylenol, then at 6pm take ibuprofen.? Please take morphine as directed as necessary for breakthrough pain. Please follow-up with an orthopedic surgeon in 1 week. You have been provided with a referral. Call them to make an appointment, they will not call you. Return to the Emergency Department if you experience worsening pain, numbness, tingling, change of color in your toes/fingers, or any other concerning symptoms. Prescriptions: New oxycodone 5 mg tablet 5 mg PO Q8H PRN (Reason: pain (scale score 7-10)) Qty: 9 0RF Rx Instructions: Partial Fill upon patient request. No Action sucralfate [Carafate] 100 mg/mL suspension 5 ml PO QID 10 Days Qty: 200 0RF Rx Instructions: swish in mouth and swallow; use after food/drink oxycodone 5 mg tablet 5 mg PO Q6H PRN (Reason: pain) Qty: 8 0RF Rx Instructions: partial filing upon pt request; Partial Fill upon patient request. Referrals: [facility] [Provider Group] - 3 days (?scaphoid fracture) Stand Alone Forms: Work/School Release Print Language: Bengali
[2025-04-09 08:44] VITALS: BP 169/82; PULSE 73; RESP 18; TEMP 36.7; O2SAT 96
[2025-04-09] MEDS: Ketorolac Tromethamine 30 MG/ML VIAL IM (08:44)
[2025-04-09 10:59] VITALS: BP 169/82; PULSE 73; RESP 18; TEMP 36.7; O2SAT 96
== END 2025-04-09 11:00 | disposition home or self-care (01) ==
PROVIDERS: Emergency Provider Emergency Medicine
DX: S69.91XA Unspecified injury of right wrist, hand and finger(s), initial encounter (principal); W19.XXXA Unspecified fall, initial encounter; Y93.9 Activity, unspecified; Y92.9 Unspecified place or not applicable; Y99.9 Unspecified external cause status; M79.644 Pain in right finger(s)
CPT/HCPCS: 73090; 73130; 96372; 99284; J1885

== ENCOUNTER → 2025-04-09 08:00 | Outpatient (BNV) | payer OTHER, SELFPAY | PROVIDERS: Emergency Provider Emergency Medicine; Visit Provider Radiology Diagnostic Radiology | DX: M79.641 Pain in right hand (principal); M79.631 Pain in right forearm | CPT/HCPCS: 73090; 73130 ==

== ENCOUNTER 2025-04-11 13:07 | Outpatient (REF) | payer OTHER, SELFPAY ==
--- NOTE | ~2025-04-11 | XR_ITS ---
EXAMINATION: XR HAND, RIGHT CLINICAL INFORMATION: M79.641 - Pain in right hand COMPARISON: April 09, 2025 TECHNIQUE: PA, lateral, and oblique views of the right hand. FINDINGS: Joint spaces are preserved. There are no erosions or osteophytes. There is no joint diastases involving the carpus. No fracture line is evident. XR/XR hand RT min 3V IMPRESSION: Unremarkable right hand. Electronically signed by: Carl Rodriguez MD 04/11/2025 06:21 PM EDT
--- OUTSIDE RECORDS SUMMARY | 2025-04-11 14:38 | XMS_ITS | Clinical Summary ---
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
== END 2025-04-11 13:08 | disposition home or self-care (01) ==
LOC: HO.HOSX 13:07
DX: M79.641 Pain in right hand (principal); M65.4 Radial styloid tenosynovitis [de Quervain]
CPT/HCPCS: 20550; 73130; 99202; J1100; J2003

== ENCOUNTER 2025-04-11 15:08 | Outpatient (AMB) | payer OTHER, SELFPAY ==
--- NOTE | 2025-04-11 15:24 | A.OFFVIS_ITS ---
Vital Signs 04/11/25 15:31 Height 5 ft 4 in Weight 260 lb BMI 44.6 Handedness Right Intake Visit Reasons: ER f/u Right thumb injury Intake Note: Joanna is a 44 year old right hand dominant female who presents today for an emergency department follow up for her right hand s/p fall, DOI: 04/07/25. Patient reports she was ambulating and states she lost balance and fell onto her right hand. She states her right thumb is giving her the most pain. [facility] prescribed her with pain medication and administered Ketorolac Tromethamine in the left arm. She was also splinted in [facility] on 04/09/25. Reports tingling sensation and pain in the right thumb. She reports a 9 out of 10 on the pain scale at today's visit. Her symptoms are exacerbated when she attempts to make a closed fist. 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 Hx of cardiac arrest in past. Allergies metoclopramide [From Reglan] Allergy (Verified 04/11/25 15:39) Unresponsive ondansetron [From Zofran] Allergy (Verified 04/11/25 15:39) Unresponsive tramadol Allergy (Verified 04/11/25 15:39) Agitated HPI HPI ER f/u Right thumb injury: Details: Joanna is a 44 year old right hand dominant female who presents today for an [facility] department follow up for her right hand s/p fall, DOI: 04/07/25. Patient reports she was ambulating and states she lost balance and fell onto her right hand. She states her right thumb is giving her the most pain. [facility] prescribed her with pain medication and administered Ketorolac Tromethamine in the left arm. She was also splinted in [facility] on 04/09/25. Reports tingling sensation and pain in the right thumb. She reports a 9 out of 10 on the pain scale at today's visit. Her symptoms are exacerbated when she attempts to make a closed fist. 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 Hx of cardiac arrest in past. [facility] Social History (Updated 04/11/25 @ 15:42 by GAGANDEEP Baum) Alcohol intake: current Alcohol intake frequency: a few times a month Patient Tobacco Use Status: Current someday Tobacco user Tobacco use type: Cigarette Current occupational status: unemployed Physical Exam Vital Signs: BMI result Body Mass Index 44.6 Office Procedures AMB Tendon Injection Tendon Injection Details: Right de Quervain injection [id number] Tendon Sheath Injection All charges added?: Procedure code (CPT) selection complete Assessment & Plan Assessment & Plan (1) De Quervain's tenosynovitis, right: Code(s): M65.4 - Radial styloid tenosynovitis [de Quervain] Category: Medical Plan History of Present Illness The patient is a 44-year-old female presenting with right thumb pain subsequent to a fall. The incident occurred on Thursday, resulting in immediate sharp pain and slight swelling confined to the right thumb and radiating up the forearm. She pursued emergency care due to the persistence and severity of symptoms. The pain intensity is described as exacerbated by specific hand movements and alleviated to some degree at rest. She has been diagnosed with De Quervain's Tenosynovitis in the past, and has previously had cortisone injections which alleviated her symptoms temporarily. The patient also recalls episodes of similar pain linked to carpal tunnel syndrome. There is no known history of diabetes. This repetitive injury has led to a suspected sprain of the ulnar collateral ligament. Review of Systems - Musculoskeletal: Reports right thumb pain and mild swelling. Denies other joint pain. - Neurological: Denies numbness or tingling. Systems reviewed and are negative except as per HPI and below Physical Exam - Musculoskeletal- Right thumb with mild swelling, pain on motion, tenderness on palpation around the ulnar side, and reduced range of motion. No evidence of severe bruising or acute fracture palpation. Results - Imaging: X-ray results from two days prior reveal small bone flakes consistent with previous imaging, no acute fractures noted. Procedure - Cortisone Injection: Consent obtained for administration of cortisone injection to alleviate symptoms related to De Quervain's Tenosynovitis. The injection was administered directly to the affected area with a sterile technique. Injection #1:The risks and benefits of a steroid injection including but not limited to risk of damage to blood vessels, nerves, tendons, infection, skin bleaching, failure to improve symptoms, increased pain, and possible need for further injections or other intervention were discussed with the patient and the patient wishes to proceed with the steroid injection. Once consent was obtained, I sterilely prepped the area over the 1st dorsal compartment of the right thumb. I then injected the 1st dorsal compartment with a combination of 1 mL of dexamethasone (4mg/ml), and 1% lidocaine. The patient tolerated the procedure well with no complications and good resolution of their symptoms prior to leaving clinic. If the patient continues to have pain 6-8 weeks following this injection, they may call to schedule appointment to discuss alternative treatment options Plan The patient has De Quervain's Tenosynovitis with recent exacerbation from a fall, treated with a cortisone injection to alleviate inflammation. Mild swelling and pain in the right thumb suggest a possible ulnar collateral ligament sprain. A comfort cool brace is recommended for support and to mitigate further aggravation. Management consists of allowing thumb rest with advised restriction of activities and maintaining range of motion to avoid stiffness. The patient is to follow up with Dr. Lin to reassess if symptoms continue. Patient was informed and verbally consented to the use of an ambient scribe for clinic note documentation during this visit. Discussion Notes Today, I provided detailed information regarding the management of De Quervain's Tenosynovitis. I discussed administering a cortisone injection as an immediate measure for symptomatic relief, explaining its benefits in reducing inflammation. Consent was obtained after discussions of risks and alternatives. We explored the use of a comfort cool brace to support her thumb, allowing her to maintain routine activities while preventing additional strain. I emphasized the importance of resting the affected area while avoiding overly restrictive practices that might lead to stiffness. I coordinated follow-up plans with Dr. Lin to ensure continuity of care and to monitor the patient's progress and response to the current management strategy. Patient Instructions - Wear the comfort cool brace on your thumb when engaging in activities. - Rest your thumb as much as possible to allow healing. - Use your thumb without overexerting or straining it. - Follow up with Dr. Lin as scheduled or if symptoms worsen. - Return to care if severe pain or new symptoms develop. Orders: Orders XR hand RT min 3V 04/11/25 M79.641 - Pain in right hand Medications: Discontinued sucralfate (Carafate) swish in mouth and swallow; use after food/drink Discontinued Reason: Patient Completed Course 5 mL PO QID 10 days 200 mL 0RF oxycodone partial filing upon pt request; Partial Fill upon patient request. Discontinued Reason: Patient Completed Course 5 mg PO Q6H PRN 8 tabs 0RF pain oxycodone Partial Fill upon patient request. Discontinued Reason: Patient Completed Course 5 mg PO Q8H PRN 9 tabs 0RF pain (scale score 7-10) Coding Level of Care Code New Pt Level 3 (19588) Diagnoses De Quervain's tenosynovitis, right M65.4 CPT Codes Tendon Injection - Tendon Injection 1: [id number] Tendon Sheath Injection ([id number])
[2025-04-11 15:31] VITALS: BMI 44.6
== END 2025-04-11 16:17 | disposition home or self-care (01) ==
LOC: HO.HOS 15:09
DX: M65.4 Radial styloid tenosynovitis [de Quervain] (principal)
CPT/HCPCS: 20550; 99204

== ENCOUNTER → 2025-04-11 15:15 | Outpatient (BNV) | payer OTHER, SELFPAY | PROVIDERS: Visit Provider Radiology Diagnostic Radiology | DX: M79.641 Pain in right hand (principal) | CPT/HCPCS: 73130 ==

== ENCOUNTER 2025-04-16 15:30 | Emergency (ER) | payer OTHER, SELFPAY ==
--- NOTE | ~2025-04-16 | XR_ITS ---
CLINICAL HISTORY: pain swelling 4 view right wrist Comparison: DX/FL/SR - XR HAND RT MIN 3V - 04/11/25 15:15 EDT CR - XR HAND RT MIN 3V - 04/09/25 08:09 EDT Findings: No fractures or dislocations. No significant arthritic change or erosions. No radiopaque foreign body. IMPRESSION: No acute fracture or dislocation. This document has been electronically signed by: Talita Corado DO on 04/16/2025 16:51:09
[2025-04-16 15:44] VITALS: BP 149/83; PULSE 86; RESP 19; TEMP 36.6; O2SAT 98; BMI 45.1
--- NOTE | 2025-04-16 15:47 | ED_ITS ---
HPI - Extremity Injury (Upper) General Chief Complaint: Extremity Injury, Upper Stated Complaint: R hand/wrist pain and swelling Time Seen by Provider: 04/16/25 18:30 History of Present Illness ED Provider: Jorge DENNIS narrative: The patient is a 44-year-old woman who had a fall about 9 or 10 days ago and injured her right hand and wrist, mostly at the base of the thumb. She came to the emergency room on April 09, 1 week ago. She was splinted and referred to orthopedics after negative x-rays. She was seen at the orthopedic clinic on April 11, 5 days ago. She was given a steroid injection to treat possible de Quervain tenosynovitis which might have been exacerbated by her fall. At that point she was given a neoprene thumb spica splint to wear. The patient says that since being seen at the orthopedic clinic her pain has gotten worse. She still has pain at the wrist near the base of the thumb and does not feel that the neoprene splint she has been wearing his very helpful. She is feels that she is in tears because of the pain. She has not had a fever. No new injury. Related Data Home Medications ?Medication ?Instructions ?Recorded ?Confirmed atorvastatin 20 mg tablet 20 mg PO DAILY 04/11/25 cetirizine 10 mg tablet 10 mg PO DAILY 04/11/25 cyclobenzaprine 5 mg tablet 5 mg PO TID PRN 04/11/25 ergocalciferol (vitamin D2) 1,250 1,250 mcg PO QWEEK 04/11/25 mcg (50,000 unit) capsule (Vitamin D2) fluticasone propionate 50 spray intranasal 04/11/25 mcg/actuation nasal spray,suspension furosemide 20 mg tablet 20 mg PO DAILY 04/11/25 metoprolol tartrate 25 mg tablet 25 mg PO DAILY 04/11/25 naproxen 500 mg tablet 500 mg PO BID 04/11/25 nitroglycerin 0.4 mg sublingual mg sublingual 04/11/25 tablet pantoprazole 40 mg tablet,delayed 40 mg PO DAILY 04/11/25 release Previous Rx's ?Medication ?Instructions ?Recorded ibuprofen 400 mg tablet 400 mg PO Q6H PRN pain #14 tabs 04/16/25 oxycodone 5 mg tablet 5 mg PO Q6H PRN pain #10 tabs 04/16/25 Allergies Allergy/AdvReac Type Severity Reaction Status Date / Time metoclopramide [From Reglan] Allergy Unresponsiv Verified 04/16/25 15:47 e ondansetron [From Zofran] Allergy Unresponsiv Verified 04/16/25 15:47 e tramadol Allergy Agitated Verified 04/16/25 15:47 Review of Systems Review of Systems: Yes all other systems are reviewed and are negative [facility] Social History Social History (Updated 04/11/25 @ 15:42 by GAGANDEEP Baum) Alcohol intake: current Alcohol intake frequency: a few times a month Patient Tobacco Use Status: Current someday Tobacco user Tobacco use type: Cigarette Advance Directives: No Advance Directives Information Provided: Yes Do you have a plan to hurt others: No Plan Current occupational status: unemployed Physical Exam Vital Signs: Vital Signs: Last Vital Signs Temp 97.4 F 04/16/25 19:20 Pulse 66 04/16/25 19:20 Resp 18 04/16/25 19:20 BP 143/85 H 04/16/25 19:20 Pulse Ox 97 04/16/25 19:20 O2 Del Method Room Air 04/16/25 19:20 BMI result Body Mass Index 45.1 Const: Other: The patient is a 44-year-old woman who was awake and alert. She is pleasant and cooperative. She says she is in significant discomfort. She does not seem acutely toxic or in distress. HEENT: Other: The appearance of the face is unremarkable. The face is symmetrical. Mucous membranes moist. Eyes: General: appearance normal, both eyes and all related structures Neck: Neck: Yes normal visual inspection and Yes full ROM Resp: Effort & Inspection: normal respiratory effort Skin: Other: Some mild generalized soft tissue swelling on the radial side of the wrist. This is not really focal swelling. There is no erythema. The skin is intact. I do not appreciate any masses. Neuro: Other: The patient is awake and alert with a normal mental status. Cranial nerves are grossly intact. She has normal sensation in all the fingers of the right hand. She has pain with moving the right wrist and the thumb and the index finger but she seems to have intact motor and sensory functions. Extrem: Other: The patient has generalized tenderness at the right wrist and the base of the thumb. There is no particular focal area of exquisite tenderness. I am able to move all the joints reasonably well. There is no deformity. Course Course Course Narrative: This is a Rapid Medical Exam performed in triage by Dinora Krishnamurthy PA-C. Full HPI, ROS and PE to be performed by primary ED provider. 44-year-old female with a past medical history de Quervain tenosynovitis presenting to the ED c/o acute right wrist pain. Denies recent injury, trauma, fall. Reports decreased ROM secondary to pain. Reports recent cortisone injection by orthopedics without relief PE: + right wrist with mild swelling. + diffusely tender to palpation greatest to radial aspect with thenar eminence tenderness. Neurovascularly intact Plan: X-ray, pain control Medications Administered Discontinued Medications Generic Name Dose Route Start Last Admin Trade Name Raulito PRN Reason Stop Dose Admin Acetaminophen 975 mg 04/16/25 18:38 04/16/25 18:45 Acetaminophen 325 Mg Tablet PO 04/16/25 18:39 975 mg ONCE ONE Administration Ibuprofen 600 mg 04/16/25 18:38 04/16/25 18:45 Ibuprofen 600 Mg Tablet PO 04/16/25 18:39 600 mg ONCE ONE Administration Oxycodone HCl 5 mg 04/16/25 18:38 04/16/25 18:45 Oxycodone Hcl Immed Release 5 Mg Tablet PO 04/16/25 18:39 5 mg ONCE ONE Administration Medical Decision Making Medical Decision Making [facility] Narrative: The patient is a 44-year-old woman who has been having problems with the pain in the right wrist since a fall about 9 days ago. She was seen at the orthopedic clinic few days ago and received a steroid injection for possible exacerbation of de Quervain tenosynovitis. She has been wearing a neoprene splint. She presents saying that her pain is worse. I do not appreciate any finding that makes me think there is an acute infectious process. I do not thin k she has a septic arthritis or any kind of tendon infection. X-rays remain negative. I will place the patient in a thumb spica splint made of Orthoglass. The patient will be given a small prescription for oxycodone tablets to be used as needed for pain. It is impressed upon her that she must keep the wrist elevated. She was already given a sling which she has at home. She should recontact the orthopedic office on Thursday. Procedures Orthopedic Splinting/Casting Injury #1: Side: right Upper Extremity Injury Location: wrist Upper Extremity Immobilizer: thumb spica Additional Comments: Splint was made using a slab of Orthoglass. Also cast padding and [place] bandages. The patient tolerated application of the splint well and remained neurovascularly intact after application of the splint. Discharge Plan Discharge Clinical Impression: Right wrist pain Patient Disposition: Home, Self-Care Additional Instructions: Please wear the new splint for comfort. Also very important is to keep the wrist elevated. Please keep it elevated to the hand of your heart or higher. This will reduce swelling which will reduce pain. Do not let the arm dangle. You may use the sling you have at home to help keep the wrist elevated. You may use the ibuprofen as needed for pain. Also the oxycodone if absolutely necessary. No driving an oxycodone. Please contact the orthopedic office tomorrow morning and explain you had significant worsening of your pain and had to come to the emergency room. Please make a follow up appointment with the orthopedic office to discuss this further. Return to the emergency room if you feel significantly worse. Prescriptions: New oxycodone 5 mg tablet 5 mg PO Q6H PRN (Reason: pain) Qty: 10 0RF Rx Instructions: Partial Fill upon patient request. ibuprofen 400 mg tablet 400 mg PO Q6H PRN (Reason: pain) Qty: 14 0RF No Action fluticasone propionate 50 mcg/actuation spray,suspension intranasal ergocalciferol (vitamin D2) [Vitamin D2] 1,250 mcg (50,000 unit) capsule 1,250 mcg PO QWEEK cyclobenzaprine 5 mg tablet 5 mg PO TID PRN pantoprazole 40 mg tablet,delayed release (DR/EC) 40 mg PO DAILY atorvastatin 20 mg tablet 20 mg PO DAILY metoprolol tartrate 25 mg tablet 25 mg PO DAILY nitroglycerin 0.4 mg tablet, sublingual sublingual cetirizine 10 mg tablet 10 mg PO DAILY naproxen 500 mg tablet 500 mg PO BID furosemide 20 mg tablet 20 mg PO DAILY Referrals: [facility] [Provider Group] (wrist pain after injection) Interventions: ED Discharge Assessment Last Done: 04/16/25 19:20 Discharge Date/Time: 04/16/25 19:20 Print Language: Telugu
[2025-04-16] MEDS: oxyCODONE HCl Immed Release 5 MG TABLET PO (18:45)
[2025-04-16] MEDS: Ibuprofen 600 MG TABLET PO (18:45)
[2025-04-16] MEDS: Acetaminophen 325 MG TABLET 975 MG PO (18:45)
[2025-04-16 19:08] VITALS: BP 143/85; PULSE 66; RESP 18; TEMP 36.3; O2SAT 97
[2025-04-16 19:20] VITALS: BP 143/85; PULSE 66; RESP 18; TEMP 36.3; O2SAT 97
== END 2025-04-16 19:20 | disposition home or self-care (01) ==
PROVIDERS: Emergency Provider Emergency Medicine
DX: M25.531 Pain in right wrist (principal)
CPT/HCPCS: 29125; 73110; 99283

== ENCOUNTER → 2025-04-16 15:50 | Outpatient (BNV) | payer OTHER, SELFPAY | PROVIDERS: Visit Provider Radiology Diagnostic Radiology | DX: M25.531 Pain in right wrist (principal) | CPT/HCPCS: 73110 ==

== ENCOUNTER 2025-05-30 10:36 | Emergency (ER) | payer OTHER, SELFPAY ==
--- OUTSIDE RECORDS SUMMARY | 2013-01-31 09:13 | XMS_ITS | Continuity of Care Document ---
Author Organization [facility] vices Address [address] [place] [address] Phone Care Team Providers Care Fabrication Engineer Name Role Phone Unavailable Unavailable Unavailable Allergies, Adverse Reactions, Alerts Substance Reaction Status Criticality METOCLOPRAMIDE HCL Active No Inform ation tramadol Other Active No Information Medications Medication Instructions Dosage Effective Dates (start - stop) Status Comments Voltaren 1 % Topical Gel 2 Gram by Topical route 4 times per day - Active Flexeril 10 mg tablet 1 tablet by Oral route 3 times per day PRN - Active Atarax Oral 25 mg 1 tablet by Oral route every 8 hours PRN take up to three time a day for anxiety - Active oxycodone 5 mg capsule 2 tablet by Oral route every 6 hours PRN - No Longer Active Flexeril 10 mg tablet 1 tablet by Oral route 3 times per day PRN - No Longer Active Atarax Oral 25 mg 1 tablet by Oral route every 8 hours PRN take up to three time a day for anxiety - No Longer Active Results Test Name Date and Time Measure Units Reference Range Abnormal Flag Status Comments Panel Description: X-RAY KNEE (COMPLETE) Unknow n Document 0 00:00:00 See [facility] Archive Unknown [facility] Conversion NoResultDesc 0 00:00:00 Unknown Panel Description: GLUCOSE, RANDOM (IH) Unknown Document 3 00:00:00 See [facility] Archive Unknown [facility] Conversion Panel Description: GLUCOSE, RANDOM (IH) Unknown GLUCOSE, FINGERSTICK 3 00:00:00 114 mg/dl H Unknown Advance Directives Directive Yes / No Effective Date File Name No Information Encounters Encounter Description Practice Location Reason(s) For Visit Diagnoses Date Provider Providers Copied on Encounter [facility], [address] [place], [address], [place] tel:[phone] [facility] Adult Medicine No Information 3 No Information [facility], [address] [place] [address], [address], [place] tel:[phone] Conversion PAIN IN JOINT, LOWER LEG 3 No Information [facility], [address] [place], [address], [place] tel:[phone] Conversion No Information 3 No Information [facility], [address] [place] [address], [address], [place] tel:[phone] Conversion No Information 3 No Information [facility], [address] [place] [address], [address], [place] tel:[phone] [facility] Adult Medicine No Information 3 No Information [facility], [address] [place] [address], [address], [place] tel:[phone] Conversion ANXIETY STATE, UNSPECIFIED 2 No Information [facility], [address] [place] [address], [address], [place] tel:[phone] Conversion No Information 2 No Information [facility], [address] [place] [address], [address], [place] tel:[phone] Historic Immunization Location No Information 2 No Information [facility], [address] [place] [address], [address], [place] tel:[phone] Conversion OTHER ACUTE PAIN 2 No Information [facility], [address] [place] [address], [address], [place] tel:[phone] [facility] Adult Medicine No Information 2 No Information [facility], [address] [place] [address], [address], [place] tel:[phone] Conversion LUMBAGO 2 No Information Family History Family Member Type Diagnosis Age At Onset No Information Immunizations Vaccine Date Status Comments IMMUNIZATION ADMIN administered Source: N ew Immunization Record FLU VACC (3+ YEARS)--no preserv administered Source: New Immuniza tion Record Payers Payer name Insurance type Covered republican ID Authoriza tion(s) No Information Social History Type Description Quantity Date Captured Comments Sex Female Smoking Status No Information Vital Signs Date / Time: Height Weight BMI Pulse Rate Blood Pressure Temperature Respiratory Rate Body Surface Area Head Circumference Head Circ. Percentile Wt./Jeison. Percentile BMI percentile Pulse Ox Inhaled Ox 1:13 PM 64.00 in 105.000 kg (233.00 lbs) 40.0 0 kg/m eter (2) 70 /min 101/67 mm[Hg] 97.90 F 16 /min Chief Complaint And Reason For Visit No Information Reason For Referral Reason For Referral No Information History Of Present Illness Encounter Date Complaint History Of Prese nt Illness No Information Functional Status Date Functional Assessmen t Pain Score 10 Instructions Date Instruction Additional Infor mation No Information Assessments Type Assessment Date No Information Patient Care Teams Name Effective Dates (start - stop) Status Members No Information
[2025-05-30] VITALS (7 sets, daily range): BP systolic 140–151; BP diastolic 70–91; PULSE 57–67; RESP 14–19; TEMP 36.6–36.8; O2SAT 98–100; BMI 44.6
--- NOTE | ~2025-05-30 | CT_ITS ---
EXAMINATION: CT ANGIOGRAM HEAD AND NECK and NONCONTRASTED HEAD CT CLINICAL INFORMATION: L sided headache, neck pain blurred vision COMPARISON: None available. TECHNIQUE: Noncontrast axial imaging of the head was performed. This was followed by test bolus sequences and head and neck intravenous bolus administration 70mL of Omnipaque 350. Helical imaging was performed in the axial plane from the aortic arch to the skull vertex. The data was processed at the senior medical technologist's workstation for generation of MIP sequences. Angled MIPs and volume rendered reformatted images were also generated at an offline 3D workstation. Stenoses are assessed in accordance with NASCET criteria unless otherwise indicated. This CT examination was performed using dose optimization techniques as appropriate, variously including the following: *Automated exposure control *Adjustment of mA and/or kV according to patient size (this includes techniques or standardized protocols for targeted exams where dose is matched to indication/reason for exam; i.e. extremities or head) *Use of iterative reconstruction technique DLP: 1559 mGy*cm FINDINGS: NONCONTRAST HEAD CT: There is no evidence of intracranial hemorrhage or extra-axial fluid collection. There is no mass effect, or edema. No CT evidence of acute territorial infarct. Ventricles, sulci, and cisterns are normal in size and configuration for patient age. No hydrocephalus. No midline shift. No significant white matter abnormalities. Globes and orbital contents image normally. No extracranial soft tissue abnormalities. There is mild mucosal thickening in the ethmoid air cells. There is moderate mucosal thickening in the right maxillary sinus and minimal thickening in the left. NECK CTA: -AORTIC ARCH: Normal in caliber. Three-vessel branching pattern. -GREAT VESSEL ORIGINS: Widely patent. No stenosis. -RIGHT COMMON CAROTID ARTERY: Normal in course and caliber to the level of the bifurcation. -CERVICAL RIGHT INTERNAL CAROTID ARTERY: Normal opacification without focal stenosis or occlusion. -LEFT COMMON CAROTID ARTERY: Normal in course and caliber to the level of the bifurcation. -CERVICAL LEFT INTERNAL CAROTID ARTERY: No hemodynamically significant stenosis. No atherosclerotic ossifications. -CERVICAL RIGHT VERTEBRAL ARTERY: Codominant. Normal in course and caliber into the skull base. -CERVICAL LEFT VERTEBRAL ARTERY: Codominant. Normal in course and caliber into the skull base. OTHER, SOFT TISSUES: -No lymphadenopathy or mass. No abnormal fluid collection or soft tissue swelling. -Normal thyroid. -Imaged superior mediastinal structures normal. -Imaged lung apices clear. CTA OF THE BRAIN: -INTRACRANIAL INTERNAL CAROTID ARTERIES: No focal stenosis or occlusion. -RIGHT ANTERIOR CEREBRAL ARTERY: Normal A1 segment.. Normal arborization of the distal segments. -LEFT ANTERIOR CEREBRAL ARTERY: Normal A1 segment.. Normal arborization of the distal segments. -ANTERIOR COMMUNICATING ARTERY: Normal. -RIGHT MIDDLE CEREBRAL ARTERY: Normal M1 segment of the MCA without focal stenosis or occlusion. Normal bifurcation. Normal arborization of the distal segments. -LEFT MIDDLE CEREBRAL ARTERY: Normal M1 segment of the MCA without focal stenosis or occlusion. Normal bifurcation. Normal arborization of the distal segments. -RIGHT VERTEBRAL ARTERY V4: Normal in course and caliber. -LEFT VERTEBRAL ARTERY V4: Normal in course and caliber. -BASILAR ARTERY: Normal without focal stenosis or occlusion. Normal appearance of the proximal superior cerebellar arteries. Normal basilar tip. -RIGHT POSTERIOR CEREBRAL ARTERY: Normal P1 segment. Normal opacification of the distal BUSINESS OBJECTS DEVELOPER segments. -LEFT POSTERIOR CEREBRAL ARTERY: Normal P1 segment. Normal opacification of the distal BUSINESS OBJECTS DEVELOPER segments. -POSTERIOR COMMUNICATING ARTERIES: Symmetrical and patent. CT/CT angio head neck IMPRESSION: NONCONTRAST HEAD CT: No intracranial hemorrhage or mass effect. No CT evidence of acute territorial infarct. Chronic sinus disease in bilateral maxillary sinuses and ethmoid air cells. CTA NECK: No hemodynamically significant stenosis. CTA HEAD: No hemodynamically stenosis. Result sent to Pratibha MURILLO via [employer] 14:55 ET Electronically signed by: Carl Rodriguez MD 05/30/2025 02:56 PM EDT
--- NOTE | 2025-05-30 11:07 | ECG_ITS ---
Test Reason : HEADACHE Blood Pressure : */* mmHG Vent. Rate : 66 BPM Atrial Rate : 66 BPM P-R Int : 142 ms QRS Dur : 82 ms QT Int : 432 ms P-R-T Axes : 45 44 47 degrees QTcB Int : 452 ms Normal sinus rhythm Normal ECG When compared with ECG of 21-Mar-2025 09:10, No significant change was found Referred By: Eliud Sanderson Electronically Signed By: Salvador Simms
--- NOTE | 2025-05-30 11:08 | ED_ITS ---
HPI - General Adult General Chief complaint: Headache Stated complaint: left head , neck pain left side pressure Time Seen by Provider: 05/30/25 11:17 Source: patient and family () Mode of arrival: ambulatory Limitations: no limitations History of Present Illness ED Provider: PRATIBHA GUERRA PA-C HPI narrative: 44 year old female with pmhx significant for chronic headache, heart failure, cardiac arrest s/p defibrillator presents to the ED today for evaluation of left sided headache, left neck pain, and bilateral facial numbness x24 hours. She is not on anticoagulation. Denies recent injury/trauma/falls. Reports seeing her PCP for this yesterday. She was provided with a referral to a neurologist and is awaiting a call back. She trialed Motrin last night without improvement. Her last dose was last night. She reports symptoms have continued today, prompting her to come to the ED today. Reports associated body aches, chills, intermittent bilateral blurred vision and feeling off balance . Reports dizziness, described as a light headedness, on standing only. Denies any LOC or episodes of syncope. 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 Denies fever, chest pain, palpitations, shortness of breath, LE pain/swelling. No recent travel or long car rides. Related Data Home Medications ?Medication ?Instructions ?Recorded ?Confirmed atorvastatin 20 mg tablet 20 mg PO DAILY 04/11/25 cetirizine 10 mg tablet 10 mg PO DAILY 04/11/25 cyclobenzaprine 5 mg tablet 5 mg PO TID PRN 04/11/25 ergocalciferol (vitamin D2) 1,250 1,250 mcg PO QWEEK 0 04/11/25 mcg (50,000 unit) capsule (Vitamin D2) fluticasone propionate 50 spray intranasal 04/11/25 mcg/actuation nasal spray,suspension furosemide 20 mg tablet 20 mg PO DAILY 04/11/25 metoprolol tartrate 25 mg tablet 25 mg PO DAILY naproxen 500 mg tablet 500 mg PO BID 04/11/25 nitroglycerin 0.4 mg sublingual mg sublingual 04/11/25 tablet pantoprazole 40 mg tablet,delayed 40 mg PO DAILY 04/11 release Previous Rx's ?Medication ?Instructions ?Recorded ibuprofen 400 mg tablet 400 mg PO Q6H PRN pain #14 t abs 04/16/25 oxycodone 5 mg tablet 5 mg PO Q6H PRN pain #10 tab s 04/16/25 Allergies Allergy/AdvReac Type Severity Reaction Status Date / Time metoclopramide (From Reglan) Allergy Unresponsiv Verified 05/30/25 11:07 e ondansetron (From Zofran) Allergy Unresponsiv Verified 05/30/25 11:07 e tramadol Allergy Agitated Verified 05/30/25 11:07 Review of Systems 2 Review of Systems: Yes all other systems are reviewed and are negative [facility] Past Medical History Attestation statement: The following information was validated with the patient. Source: old records reviewed and nursing notes reviewed Social History Social History Alcohol intake: current Alcohol intake frequency: a few times a month Patient Tobacco Use Status: Current someday Tobacco user Tobacco use type: Cigarette Current occupational status: unemployed Physical Exam ED Vital Signs: Vital Signs - 24 hr 05/30/25 11:04 05/30/25 12:45 05/30/25 12:49 Temperature 98.3 F Pulse Rate 67 59 61 Respiratory Rate 16 Blood Pressure 141/91 H 145/70 H 149/80 H Pulse Oximetry 98 Oxygen Delivery Method Room Air 05/30/25 12:53 05/30/25 14:27 05/30/25 15:15 Temperature 98.2 F 97.8 F Pulse Rate 65 57 64 Respiratory Rate 19 14 Blood Pressure 140/81 H 147/73 H 151/79 H Pulse Oximetry 100 98 Oxygen Delivery Method Room Air Room Air 05/30/25 16:48 Temperature 97.8 F Pulse Rate 64 Respiratory Rate 14 Blood Pressure 151/79 H Pulse Oximetry 98 Oxygen Delivery Method Room Air BMI result Body Mass Index 44.6 hypertensive, vitals are otherwise wnl General: Well appearing, in no acute distress. Skin: Warm, dry, intact. No rashes or lesions. Head: Normocephalic, atraumatic. No palpable temporal artery. No scalp tenderness. EENT: Hearing is intact b/l. Conjunctiva clear. Sclera is anicteric. PERRLA. EOM intact. Moist mucous membranes.? Neck: Supple without LAD. FROM. No nuchal rigidity or meningeal signs. Cardiac: Chest wall symmetric. RRR Lungs: Normal respiratory effort without accessory muscle use. CTA bilaterally Abdomen: Soft, non-tender, non-distended. No rebound tenderness or guarding. Positive BS x4. Back: No midline spinous or paraspinal tenderness. No step off deformity. Ext: Upper and lower extremities atraumatic, without tenderness, deformity, swelling or erythema. Full ROM throughout. Neuro: AOx3. Normal speech. NIH 0. Normal [id number], [id number], ambulating with steady gait. Strength 5/5 intact throughout. No saddle anesthesia. Sensation intact to light touch. NV intact distally. Psych: Appropriate mood and affect. Responds appropriately to questions. NIH Stroke Scale Internal: Initial- Upon Arrival Level of Consciousness: Alert Level of Consciousness Questions: Answers both questions correctly Level of Consciousness Commands: Performs both tasks correctly Best Gaze: Normal Visual: No visual loss Facial Palsy: Normal Motor Arm (Right): No drift Motor Arm (Left): No drift Motor Leg (Right): No drift Motor Leg (Left): No drift Limb Ataxia: Absent Sensory: Normal Best Language: No aphasia Dysarthia: Normal Extinction and Inattention: No abnormality Score: 0 Course Course Course Narrative: RME: 44 yold female with pmh of chronic headache, heart failure, cardiac arrest, defibrillator presents to the ED for headache left sided presuure and left neck pain since last night. patient denies any loss of vision, slurred speech, dizziness, nauisea, vomitting, or weakness. NIH Score 0. Reevaluation(s) Reevaluation #1: Patient has a mild leukocytosis to 11.7 of unknown significance, no left shift. Patient without acute electrolyte abnormality requiring intervention. No GURVINDER. Random glucose 137. Liver function appears to be around patient's baseline. Troponin undetectable. Inflammatory markers are mildly elevated with CRP of 1.63 and ESR of 25. These should be significantly more elevated in instances such as giant cell arteritis so I have low suspicion for this. BNP mildly elevated to 110, she has no clinical evidence of fluid overload. She is on Lasix daily. Urine shows 6-10 WBCs, 6-10 squamous epithelial cells and 2+ urine bacteria. She does not have any urinary symptoms. This is likely contamination. Will await urine culture to treat. Negative COVID, flu, RSV. 1530 -- CT angio head and neck unremarkable. There is no significant stenosis. No intracranial hemorrhage or mass effect. No tear territorial infarct. Incidental finding of chronic sinus disease to bilateral maxillary sinuses. > on re-evaluation, patient reports no improvement in headache after receiving Toradol and Fioricet. We are quite limited in what we can treat the patient with as she has a reaction to metoclopramide and Zofran. We cannot trial of migraine cocktail. > I did discuss case with my attending Dr. Link who has also evaluated patient at bedside. Her exam is quite reassuring. She has no meningeal signs, no nuchal rigidity, exam is nonfocal, no scalp tenderness or palpable temporal artery. Recommending dose of Dilaudid as this has seemed to help patient in the past - she is agreeable. 1634 -- Patient reports complete resolution in pain with dilaudid. She would like to be discharged home. She is requesting a prescription for p.o. Dilaudid. I informed patient that a prescription for oral Dilaudid is not indicated for her at this time. Advised Tylenol and Motrin at home. Considered sending her home with Excedrin migraine/Fioricet however this did not work for her here. She has already seen her PCP yesterday who has provided her with a referral to Neurology. I advised her to follow up with them. I have also provided her with a neurology referral. Patient has remained stable throughout ED visit today. Discussed worrisome signs and symptoms and when to return to the ED. All questions answered at this time. Patient is agreeable with disposition and stable for discharge. Medications Administered Discontinued Medications Generic Name Dose Route Start Last Admin Trade Name Raulito PRN Reason Stop Dose Admin Acetaminophen/Butalbital/Caffeine 1 tab 05/30/25 13:28 05/30/25 13:34 Butalb/Acetamin/Caff 50/325/40 Tablet PO 05/30/25 13:29 1 tab ONCE ONE Administration Hydromorphone HCl 1 mg 05/30/25 15:36 05/30/25 15:44 Hydromorphone Hcl 1 Mg/Ml Syringe IVPUSH 05/30/25 15:37 1 mg ONCE ONE Administration Protocol Sodium Chloride 1,000 mls @ 999 mls/hr 05/30/25 12:00 05/30/25 16:20 Ns IV 05/30/25 13:00 Infused .Q1H1M NARAYAN Infusion Iohexol 100 ml 05/30/25 14:37 05/30/25 14:37 Iohexol 350 Mg/Ml 100 Ml Infus..Btl IV 05/30/25 14:38 70 ml ONCE ONE Administration Ketorolac Tromethamine 30 mg 05/30/25 11:47 05/30/25 12:06 Ketorolac Tromethamine 30 Mg/Ml Vial IVPUSH 05/30/25 11:48 30 mg ONCE ONE Administration Medical Decision Making Medical Decision Making [facility] Narrative: 44 year old female with pmhx significant for chronic headache, heart failure, cardiac arrest s/p defibrillator presents to the ED today for evaluation of left sided headache, left neck pain and bilateral facial numbness x24 hours. Vital signs stable. Exam is nonfocal, cerebellum is intact. No nuchal rigidity or meningeal signs. Plan: labs, CT, pain control, re-eval. Differential Diagnosis Differential Diagnoses: The differential diagnosis associated with the presentation includes Differential diagnosis includes anemia, electrolyte abnormality, dehydration, viral syndrome, migraine vs tension type headache. No headache red flags. Neurologic exam without evidence of meningismus. No focal neurologic findings. Presentation not consistent with acute intracranial bleed including SAH. Presentation not consistent with acute MIDDLEWARE ARCHITECT infection including meningitis or brain abscess. Temporal arteritis unlikely, as is acute angle closure glaucoma given history and physical findings. Presentation not consistent with other acute, emergent causes of headache at this time. Plan to treat symptomatically with pain medication. No indication for LP at this time. Admission/Observation not included Lab Data [facility] Lab Attestation statement: I reviewed the patient's lab results. as above. 05/30/25 12:02 05/30/25 12:02 Labs: Lab Results 05/30/25 05/30/25 05/30/25 Range/Units 11:48 12:02 15:32 WBC 11.7 H (4.8-10.8) X10*3/uL RBC 4.04 L (4.20-5.50) X10*6/uL Hgb 13.5 (12.0-16.0) g/dl Hct 39.7 (37.0-47.0) % MCV 98.3 H (80.0-98.0) fL MCH 33.4 H (27.0-33.0) pg MCHC 34.0 (31.0-35.0) g/dl RDW 13.2 (11.0-16.0) % Plt Count 217 (160-400) X10*3/uL MPV 10.6 (9.4-12.3) fL Immature Gran % (Auto) 0.4 (0.0-0.4) % Neut % (Auto) 75.6 H (45-73) % Lymph % (Auto) 18.4 L (20-40) % Turner % (Auto) 4.3 (2-11) % Eos % (Auto) 0.9 (0-4) % Baso % (Auto) 0.4 (0-2) % Lymph # (Auto) 2.2 (1.2-4.9) X10*3/uL Turner # (Auto) 0.5 (0.1-1.2) X10*3/uL Eos # (Auto) 0.1 (0.0-0.4) X10*3/uL Baso # (Auto) 0.1 (0.0-0.2) X10*3/uL Abs Immat Gran (auto) 0.05 H (0.00-0.03) X10*3/uL Absolute Neuts (auto) 8.8 H (2.0-8.3) x10*3/uL Absolute Nucleated RBC 0.000 (0.0-0.012) X10*3/uL Nucleated RBC % (auto) 0.0 (0.0-0.2) /100WBC ESR 25 H (0-20) MM/HR Sodium 140 (135-145) mmol/L Potassium 3.6 (3.3-5.1) mmol/L Chloride 106 (96-108) mmol/L Carbon Dioxide 25 (22-29) mmol/L Anion Gap 13 (12-20) BUN 10 (9-16) mg/dL Creatinine 0.72 (0.5-1.4) mg/dL Estim Creat Clear Calc 124.4 Estimated GFR > 60 POC Glucose 136 H (60-115) mg/dL Random Glucose 137 H (60-115) mg/dL Calcium 8.8 (8.4-10.2) mg/dL Magnesium 1.8 (1.6-2.6) mg/dL Total Bilirubin 0.4 (0.0-1.0) mg/dL AST 15 (5-31) U/L ALT 16 (0-31) U/L Alkaline Phosphatase 126 H (39-117) U/L Total Creatine Kinase 38 (26-140) U/L Troponin I High Sens < 2.7 (<3.5-17.0) ng/L C-Reactive Protein 1.63 H (< or = 0.50) mg/dL B-Natriuretic Peptide 110 H (<100) pg/mL Total Protein 7.3 (6.5-8.0) g/dL Albumin 4.3 (3.5-5.0) g/dL Beta HCG, Quant < 2 mIU/mL Urine Color Yellow Urine Appearance Clear Urine pH 6.0 (5.0-9.0) Ur Specific [place] >= 1.030 H (1.005-1.025) Urine Protein 30 (1+) H (Neg-Trace) mg/dL Urine Glucose (UA) Negative (Negative) mg/dL Urine Ketones Negative (Negative) mg/dL Urine Blood Negative (Negative) Urine Nitrite Negative (Negative) Ur Leukocyte Esterase Negative (Negative) Urine RBC 0-2 (0-2) /HPF Urine WBC 6-10 H (0-5) /HPF Ur Squamous Epith Cells 6-10 (0-2) /HPF Urine Bacteria 2+ (None Seen) Hyaline Casts 0-2 (0-2) /LPF Influenza Type A (PCR) NEGATIVE (Negative) Influenza Type B (PCR) NEGATIVE (Negative) RSV RNA Qual (PCR) NEGATIVE (Negative) SARS-CoV-2 RNA (RT-PCR) NEGATIVE (Negative) Independent Interpretation I performed an independent interpretation of an: EKG and CT Scan Interpretation: EKG showing normal sinus rhythm, rate of 66 beats per minute, QT 432, no acute ischemic changes or ST elevations. CT angio head/neck without significant stenosis, no intracranial bleed Radiology Impression Discussion of test interpretation with radiology: I have reviewed the radiologist's reading. Radiologist Impression: Date of Service: 05/30/25 Procedure(s): CT angio head neck Accession Number(s): [id number] cc: Irene Hurst MD; Pratibha Guerra~ Report Number: [id number]: Total DLP = 1559.00 mGy-cm EXAMINATION: CT ANGIOGRAM HEAD AND NECK and NONCONTRASTED HEAD CT CLINICAL INFORMATION: L sided headache, neck pain blurred vision COMPARISON: None available. TECHNIQUE: Noncontrast axial imaging of the head was performed. This was followed by test bolus sequences and head and neck intravenous bolus administration 70mL of Omnipaque 350. Helical imaging was performed in the axial plane from the aortic arch to the skull vertex. The data was processed at the senior cytogenetic technologist's workstation for generation of MIP sequences. Angled MIPs and volume rendered reformatted images were also generated at an offline 3D workstation. Stenoses are assessed in accordance with NASCET criteria unless otherwise indicated. This CT examination was performed using dose optimization techniques as appropriate, variously including the following: *Automated exposure control *Adjustment of mA and/or kV according to patient size (this includes techniques or standardized protocols for targeted exams where dose is matched to indication/reason for exam; i.e. extremities or head) *Use of iterative reconstruction technique DLP: 1559 mGy*cm FINDINGS: NONCONTRAST HEAD CT: There is no evidence of intracranial hemorrhage or extra-axial fluid collection. There is no mass effect, or edema. No CT evidence of acute territorial infarct. Ventricles, sulci, and cisterns are normal in size and configuration for patient age. No hydrocephalus. No midline shift. No significant white matter abnormalities. Globes and orbital contents image normally. No extracranial soft tissue abnormalities. There is mild mucosal thickening in the ethmoid air cells. There is moderate mucosal thickening in the right maxillary sinus and minimal thickening in the left. NECK CTA: -AORTIC ARCH: Normal in caliber. Three-vessel branching pattern. -GREAT VESSEL ORIGINS: Widely patent. No stenosis. -RIGHT COMMON CAROTID ARTERY: Normal in course and caliber to the level of the bifurcation. -CERVICAL RIGHT INTERNAL CAROTID ARTERY: Normal opacification without focal stenosis or occlusion. -LEFT COMMON CAROTID ARTERY: Normal in course and caliber to the level of the bifurcation. -CERVICAL LEFT INTERNAL CAROTID ARTERY: No hemodynamically significant stenosis. No atherosclerotic ossifications. -CERVICAL RIGHT VERTEBRAL ARTERY: Codominant. Normal in course and caliber into the skull base. -CERVICAL LEFT VERTEBRAL ARTERY: Codominant. Normal in course and caliber into the skull base. OTHER, SOFT TISSUES: -No lymphadenopathy or mass. No abnormal fluid collection or soft tissue swelling. -Normal thyroid. -Imaged superior mediastinal structures normal. -Imaged lung apices clear. CTA OF THE BRAIN: -INTRACRANIAL INTERNAL CAROTID ARTERIES: No focal stenosis or occlusion. -RIGHT ANTERIOR CEREBRAL ARTERY: Normal A1 segment.. Normal arborization of the distal segments. -LEFT ANTERIOR CEREBRAL ARTERY: Normal A1 segment.. Normal arborization of the distal segments. -ANTERIOR COMMUNICATING ARTERY: Normal. -RIGHT MIDDLE CEREBRAL ARTERY: Normal M1 segment of the MCA without focal stenosis or occlusion. Normal bifurcation. Normal arborization of the distal segments. -LEFT MIDDLE CEREBRAL ARTERY: Normal M1 segment of the MCA without focal stenosis or occlusion. Normal bifurcation. Normal arborization of the distal segments. -RIGHT VERTEBRAL ARTERY V4: Normal in course and caliber. -LEFT VERTEBRAL ARTERY V4: Normal in course and caliber. -BASILAR ARTERY: Normal without focal stenosis or occlusion. Normal appearance of the proximal superior cerebellar arteries. Normal basilar tip. -RIGHT POSTERIOR CEREBRAL ARTERY: Normal P1 segment. Normal opacification of the distal TEEN COUNSELOR segments. -LEFT POSTERIOR CEREBRAL ARTERY: Normal P1 segment. Normal opacification of the distal TEEN COUNSELOR segments. -POSTERIOR COMMUNICATING ARTERIES: Symmetrical and patent. CT/CT angio head neck IMPRESSION: NONCONTRAST HEAD CT: No intracranial hemorrhage or mass effect. No CT evidence of acute territorial infarct. Chronic sinus disease in bilateral maxillary sinuses and ethmoid air cells. CTA NECK: No hemodynamically significant stenosis. CTA HEAD: No hemodynamically stenosis. Result sent to Pratibha MURILLO via [employer] 14:55 ET Electronically signed by: Carl Rodriguez MD 05/30/2025 02:56 PM EDT Independent Historian Clinical information obtained from an independent historian. History obtained from or confirmed by: Spouse () External Record Review External record reviewed: Inpatient record Prescription Management I considered prescription management with: Pain Medication Chronic Conditions Patient?s care impacted by: Other (chronic headaches) Social Determinants Patient?s care significantly limited by Social Determinants of Health including: Other Social Determinant of Health Critical Care Time Critical Care Time Critical Care Time: No Discharge Plan Discharge Clinical Impression: Headache Patient Disposition: Home, Self-Care Instructions: General Headache (ED) Additional Instructions: You have been evaluated in the Emergency Department today for headache. Your evaluation did not show evidence of medical conditions requiring emergent intervention at this time, and your pain improved with medication in the ED. Sometimes it is difficult to explain the cause of headache but the negative workup today is reassuring. Your headache improved with medication today. Please follow up with your primary care physician within two days. I also advised you to follow up with the neurologist that your PCP referred you to. I have provided you with a another referral as well. You may contact them to establish care. Return to the Emergency Department if you experience worsening or uncontrolled pain, vision changes, recurrent vomiting, difficulty with normal activities, abnormal behavior, difficulty walking, numbness, weakness, or any other concerning symptoms. Prescriptions: No Action oxycodone 5 mg tablet 5 mg PO Q6H PRN (Reason: pain) Qty: 10 0RF Rx Instructions: Partial Fill upon patient request. ibuprofen 400 mg tablet 400 mg PO Q6H PRN (Reason: pain) Qty: 14 0RF fluticasone propionate 50 mcg/actuation spray,suspension intranasal ergocalciferol (vitamin D2) [Vitamin D2] 1,250 mcg (50,000 unit) capsule 1,250 mcg PO QWEEK cyclobenzaprine 5 mg tablet 5 mg PO TID PRN pantoprazole 40 mg tablet,delayed release (DR/EC) 40 mg PO DAILY atorvastatin 20 mg tablet 20 mg PO DAILY metoprolol tartrate 25 mg tablet 25 mg PO DAILY nitroglycerin 0.4 mg tablet, sublingual sublingual cetirizine 10 mg tablet 10 mg PO DAILY naproxen 500 mg tablet 500 mg PO BID furosemide 20 mg tablet 20 mg PO DAILY Referrals: [facility] Neuro[facility] [Provider Group] Irene Hurst MD [Primary Care Provider, Family Practice] Interventions: ED Discharge Assessment Last Done: 05/30/25 16:48 Discharge Date/Time: 05/30/25 16:49 Print Language: Mongolian
[2025-05-30 11:56] LABS: Glucose, Whole Blood 136 mg/dL (60-115)
[2025-05-30 12:06] LABS: MANUAL DIFF FLAG NO
[2025-05-30 12:11] LABS: Hematocrit 39.7 % (37.0-47.0); Hemoglobin 13.5 g/dl (12.0-16.0); Imm Gran Abs Auto 0.05 X10*3/uL (0.00-0.03); Imm Gran Pct Auto 0.4 % (0.0-0.4); Lymphocytes Absolute Auto 2.2 X10*3/uL (1.2-4.9); Mean Corpuscular HGB Conc 34.0 g/dl (31.0-35.0); Mean Corpuscular Hemoglobin 33.4 pg (27.0-33.0); Mean Corpuscular Volume 98.3 fL (80.0-98.0); NRBC Abs Auto 0.000 X10*3/uL (0.0-0.012); NRBC Pct Auto 0.0 /100WBC (0.0-0.2); Platelet Count 217 X10*3/uL (160-400); Red Blood Count 4.04 X10*6/uL (4.20-5.50); White Blood Count 11.7 X10*3/uL (4.8-10.8)
[2025-05-30 12:23] LABS: Alanine Aminotransferase 16 U/L (0-31); Albumin Level 4.3 g/dL (3.5-5.0); Alkaline Phosphatase 126 U/L (39-117); Anion Gap 13 (12-20); Aspartate Amino Transferase 15 U/L (5-31); Blood Urea Nitrogen 10 mg/dL (9-16); Calcium 8.8 mg/dL (8.4-10.2); Carbon Dioxide 25 mmol/L (22-29); Chloride 106 mmol/L (96-108); Creatinine Clr Calc Pharmacy 124.4; Estimated Glomerular Filt Rate > 60; Magnesium 1.8 mg/dL (1.6-2.6); Potassium 3.6 mmol/L (3.3-5.1); Sodium 140 mmol/L (135-145); Total Protein 7.3 g/dL (6.5-8.0)
[2025-05-30 12:27] LABS: B Type Natriuretic Peptide 110 pg/mL (<100)
[2025-05-30 12:28] LABS: Troponin-I High Sensitivity < 2.7 ng/L (<3.5-17.0)
[2025-05-30 12:50] LABS: Resp Syncy Virus RNA Qual PCR NEGATIVE (Negative); SARS COV2 PCR INHOUSE NEGATIVE (Negative)
--- OUTSIDE RECORDS SUMMARY | 2025-05-30 13:18 | XMS_ITS | Patient Health Record ---
Author Organization [facility] Address [address] [facility] [address] [place] [address] Care Team Providers Care Longwall Foreman Name Role Phone Stuart Elizabeth Unavailable [phone] Juanjo Case MD Unavailable Unavailable Allergies Allergen (clinical drug ingredient) Drug/Non Drug Allergy documented on EMR Reaction Allergy Type Onset Date Status metoclopramide Reglan Unknown Drug Allergy Ac tive tramadol Tramadol Unknown Drug Allergy Active Reason For Referral No Information Medications Medication SIG (Take, Route, Frequency, Duration) Notes Start Date End Date Status Vitamin D3 Active Naprosyn 500 MG Tablet 1 tablet with food or milk as needed Orally every 12 hrs Active Folic Acid Active Acetaminophen 500 MG Tablet 2 tablet as needed Orally every 6 hrs; Duration: 10 days 03/04/2022 Not-Taking/PRN Ibuprofen 600 MG Tablet 1 tablet with food or milk as needed Orally every 6 hrs; Duration: 10 days 03/04/2022 Not-Taking/PRN Gabapentin 300 MG Capsule 1 capsule Orally TID; Duration: 10 days 03/04/2022 Not-Taking/PRN Vitamin B12 Active Mirena placed 2019 Active Social History Tobacco Use: Social History Observation Description Date Details (start date - stop date) Current Smoker NA - NA Social History Sexual History: Social Info Question Answer Notes Sexual History Had sex in the past 12 months (vaginal, oral, or anal)? Yes Use protection? Yes Have you ever had a Sexually transmitted disease ? No Drugs/Alcohol: Social Info Question Answer Notes Drugs Have you used drugs other than those for medical reasons in the past 12 months? No Tobacco Use: Social Info Question Answer Notes Tobacco Use/Smoking Are you a current smoker How many cigarettes a day do you smoke? 11-20 Additional Details Category Social Info Options Details Miscellaneous: Marital status: Occupation: unemployed Problems Problem Type SNOMED Code ICD Code Onset Dates Problem Status W/U Status Risk Notes Problem Female urinary stress incontinence (64136688) YOLANDA (stress urinary incontinence, female) (N39.3) Active confirmed Problem Pre-procedure evaluation check (371056515) *Pre-operative examination (Code also - reason for the procedure) (Z01.818) Active confirmed Problem Morbid obesity (964225383) Morbid obesity (E66.01) Active confirmed Problem Old myocardial infarction (1248592) History of [place] (myocardial infarction) (I25.2) Active confirmed Problem History of cerebrovascular accident (960230090) History of stroke (Z86.73) Active confirmed Problem Overactive urinary bladder (disorder) (343937780) OAB (overactive bladder) (N32.81) Active confirmed Problem Mammogram - screening (67814949) Visit for screening mammogram (Z12.31) Active confirmed Problem Screening for malignant neoplasm of cervix (procedure) (656275250) Screening for cervical cancer (Z12.4) Active confirmed Problem Human papilloma virus screening (879071073) Screening for HPV (human papillomavirus) (Z11.51) Active confirmed Problem Threatened in third trimester (12700963) Threatened in third trimester (O20.0) 11/09/18 Active confirmed Problem Cardiac pacemaker in situ (203590510) Artificial pacemaker (Z95.0) 11/09/18 Active confirmed Plan Of Treatment Pending Test Test Name Order Date *Screen Mammo b/l w/ Stanley and US if need ed per protocol 08/19/2022 Insurance Providers Payer Name Payer Address Payer Phone Subscriber Number Group Number Insured Name Patient Relationship to Insured Coverage Start Date Coverage End Date [employer] [address] [address] [place] [address] [id number] Joanna Alvarenga Self - patient is the insured Medical (General) History Medical History History ICD Code Cardiac Arrest Anemia Pacemaker Threatened Urine leakage Prolonged QT syndrome COVID19 vaccine series completed: (plans to get booster) Surgical History Surgery Date(Month/Year) TVT mesh mid-urethral sling and Cystoscopy on 03-04-[address] Stuart Elizabeth RT fallopian tube removal IUD Insertion-done at another office 201 9 Heart Repair D&C Back surgery Appendectomy Hospitalization History Reason Date(Month/Year) See surgical hx
--- OUTSIDE RECORDS SUMMARY | 2025-05-30 13:18 | XMS_ITS | Clinical Summary ---
Author Organization [facility] Address [address] [place] [address] Care Team Providers Care Silver Wrapper Name Role Phone Unavailable Primary Care Provider [...] 63 12/07/2019 10:49 PM EST Temperature 36.8 C (98.3 F) 12/07/2019 10:49 PM EST Respiratory Rate 18 12/07/2019 10:49 PM EST [...] Cervical Cancer Screening (P ap Smear) 2000 Colon Cancer Screening (Colonoscopy) 2024 Influenza Vaccine (#1) 2025 Pneumococcal Vaccine Aged Out No long er eligible based on patient's age to complete this topic RSV Ped < 20 months Aged Out No longe r eligible based on patient's age to complete this topic
--- OUTSIDE RECORDS SUMMARY | 2025-05-30 13:18 | XMS_ITS | Clinical Summary ---
[facility] Address [address] [place] [address] Care Team Providers Care Trimming Operator Name Role Phone Unavailable Primary Care Provider [...] 2000 COVID-19 Vaccine (2023-2 5 season) 2024 Depression Screening 11/09/2024 Influenza Vaccine (#1) 2025 HIB Vaccines Aged Out No longer [...] 5 Years) and At-Risk Patients (6 to 49 Years) Aged Out No longer eligible b ased on patient's age to complete this topic RSV Immunization Patients Un roberta 20 months Aged Out No longer eligible b ased on patient's age to complete this topic Varicella Vaccines Aged Out No longer eligible based on patient's age to complete this topic
[2025-05-30] MEDS: Butalb/Acetamin/Caff 50/325/40 TABLET 1 TAB PO (13:34)
[2025-05-30] MEDS: iohexoL 350 MG/ML 100 ML INFUS..BTL IV (14:37)
[2025-05-30 15:43] LABS: Appearance Urine Clear; Glucose Urine UA Negative (Negative); PH 6.0 (5.0-9.0); Specific Gravity - Urine >= 1.030 (1.005-1.025); UMIC TRIGGER UACC YES
[2025-05-30 15:46] LABS: UACC Culture Trigger YES
== END 2025-05-30 16:49 | disposition home or self-care (01) ==
PROVIDERS: Emergency Medicine Emergency Medical Services; Physician Assistant; Physician Assistant Medical; Emergency Provider Emergency Medicine; PCP Family Medicine
DX: R51.9 Headache, unspecified (principal); R20.0 Anesthesia of skin; R29.700 NIHSS score 0; J32.0 Chronic maxillary sinusitis; Z03.818 Encounter for observation for suspected exposure to other biological agents ruled out; F17.210 Nicotine dependence, cigarettes, uncomplicated; Z79.02 Long term (current) use of antithrombotics/antiplatelets; Z79.899 Other long term (current) drug therapy
CPT/HCPCS: 36415; 70496; 70498; 80053; 81001; 82550; 82947; 83735; 83880; 84484; 84702; 85025; 85652; 86140; 87086; 87637; 93005; 96361; 96374; 96375; 99285; J1171; J1885; Q9967

== ENCOUNTER → 2025-05-30 11:07 | Outpatient (BNV) | payer OTHER, SELFPAY | PROVIDERS: Emergency Provider Emergency Medicine; PCP Family Medicine; Visit Provider Internal Medicine Cardiovascular Disease | DX: R51.9 Headache, unspecified (principal) | CPT/HCPCS: 93010 ==

== ENCOUNTER → 2025-05-30 13:02 | Outpatient (BNV) | payer OTHER, SELFPAY | PROVIDERS: Emergency Provider Emergency Medicine Emergency Medical Services; PCP Family Medicine; Visit Provider Radiology Diagnostic Radiology | DX: M54.2 Cervicalgia (principal); R51.9 Headache, unspecified; H53.8 Other visual disturbances | CPT/HCPCS: 70496; 70498 ==

== ENCOUNTER 2025-06-13 17:05 | Emergency (ER) | payer OTHER, SELFPAY ==
[2025-06-13 17:11] VITALS: BP 128/86; PULSE 74; O2SAT 98
--- NOTE | 2025-06-13 17:11 | ED.ABDPAIN ---
HPI - Abdominal Pain General Chief Complaint: Abdominal Pain Stated Complaint: abd pain Related Data Home Medications ?Medication ?Instructions ?Recorded ?Confirmed atorvastatin 20 mg tablet 20 mg PO DAILY 04/11/25 cetirizine 10 mg tablet 10 mg PO DAILY 04/11/25 cyclobenzaprine 5 mg tablet 5 mg PO TID PRN 04/11/25 ergocalciferol (vitamin D2) 1,250 1,250 mcg PO QWEEK 04/11/25 mcg (50,000 unit) capsule (Vitamin D2) fluticasone propionate 50 spray intranasal 04/11/25 mcg/actuation nasal spray,suspension furosemide 20 mg tablet 20 mg PO DAILY 04/11/25 metoprolol tartrate 25 mg tablet 25 mg PO DAILY 04/11/25 naproxen 500 mg tablet 500 mg PO BID 04/11/25 nitroglycerin 0.4 mg sublingual mg sublingual 04/11/25 tablet pantoprazole 40 mg tablet,delayed 40 mg PO DAILY 04/11/25 release Previous Rx's ?Medication ?Instructions ?Recorded ibuprofen 400 mg tablet 400 mg PO Q6H PRN pain #14 tabs 04/16/25 oxycodone 5 mg tablet 5 mg PO Q6H PRN pain #10 tabs 04/16/25 aluminum-mag hydroxide-simethicone 5 ml PO 5XD PRN dyspepsia #3,000 mL 06/14/25 200 mg-200 mg-20 mg/5 mL oral susp (Maalox Advanced) Allergies Allergy/AdvReac Type Severity Reaction Status Date / Time metoclopramide (From Reglan) Allergy Unresponsiv Verified 06/14/25 07:58 e ondansetron (From Zofran) Allergy Unresponsiv Verified 06/14/25 07:58 e tramadol Allergy Agitated Verified 06/14/25 07:58 [facility] Social History Social History Alcohol intake: current Alcohol intake frequency: a few times a month Patient Tobacco Use Status: Current someday Tobacco user Tobacco use type: Cigarette Current occupational status: unemployed Physical Exam ED Vital Signs: Vital Signs - 24 hr 06/13/25 17:36 Temperature 97.6 F Pulse Rate 75 Respiratory Rate 16 Blood Pressure 144/91 H Pulse Oximetry 99 Oxygen Delivery Method Room Air BMI result Body Mass Index 33.9 Course Course Course Narrative: This is a Rapid Medical Examination (RME) performed by Edward Humphrey PA-C in triage. Full HPI, ROS, assessment and treatment plan per primary provider in the Main ED. 44 yo female with history of CHF with hx AICD/PPM, prolonged QT syndrome, fibromyalgia, migraines, presents to the ER via EMS from her PCP office for evaluation of 5 days of epigastric pain that has slowly been worsening. it radiates to her back when the pain is very strong. +nausea but no vomiting, having regular BMs. no fevers, chills. s/p appendectomy and fallopian tube removal. no history of pancreatitis in the past, no ETOH use. younger brother at 40 from pancreatic cancer. Plan: EKG, labs, imaging per primary provider Reevaluation(s) Reevaluation #1: patient left the ER prior to completing treatment Medical Decision Making Lab Data 06/13/25 17:33 06/13/25 17:33 Labs: Lab Results 06/13/25 Range/Units 17:33 WBC 10.2 (4.8-10.8) X10*3/uL RBC 4.02 L (4.20-5.50) X10*6/uL Hgb 13.2 (12.0-16.0) g/dl Hct 39.5 (37.0-47.0) % MCV 98.3 H (80.0-98.0) fL MCH 32.8 (27.0-33.0) pg MCHC 33.4 (31.0-35.0) g/dl RDW 12.9 (11.0-16.0) % Plt Count 231 (160-400) X10*3/uL MPV 10.8 (9.4-12.3) fL Immature Gran % (Auto) 0.9 H (0.0-0.4) % Neut % (Auto) 62.7 (45-73) % Lymph % (Auto) 29.5 (20-40) % Daggett % (Auto) 4.8 (2-11) % Eos % (Auto) 1.6 (0-4) % Baso % (Auto) 0.5 (0-2) % Lymph # (Auto) 3.0 (1.2-4.9) X10*3/uL Daggett # (Auto) 0.5 (0.1-1.2) X10*3/uL Eos # (Auto) 0.2 (0.0-0.4) X10*3/uL Baso # (Auto) 0.1 (0.0-0.2) X10*3/uL Abs Immat Gran (auto) 0.09 H (0.00-0.03) X10*3/uL Absolute Neuts (auto) 6.4 (2.0-8.3) x10*3/uL Absolute Nucleated RBC 0.000 (0.0-0.012) X10*3/uL Nucleated RBC % (auto) 0.0 (0.0-0.2) /100WBC Sodium 140 (135-145) mmol/L Potassium 4.1 (3.3-5.1) mmol/L Chloride 105 (96-108) mmol/L Carbon Dioxide 27 (22-29) mmol/L Anion Gap 12 (12-20) BUN 10 (9-16) mg/dL Creatinine 0.80 (0.5-1.4) mg/dL Estim Creat Clear Calc 103.3 Estimated GFR > 60 Random Glucose 97 (60-115) mg/dL Calcium 9.3 (8.4-10.2) mg/dL Magnesium 1.9 (1.6-2.6) mg/dL Total Bilirubin 0.3 (0.0-1.0) mg/dL Direct Bilirubin 0.1 (0.0-0.5) mg/dL AST 18 (5-31) U/L ALT 15 (0-31) U/L Alkaline Phosphatase 132 H (39-117) U/L Total Protein 7.4 (6.5-8.0) g/dL Albumin 4.5 (3.5-5.0) g/dL Lipase 12 (8-78) U/L Discharge Plan Discharge Clinical Impression: Abdominal pain Patient Disposition: Left W/O Completing Treatment Prescriptions: No Action oxycodone 5 mg tablet 5 mg PO Q6H PRN (Reason: pain) Qty: 10 0RF Rx Instructions: Partial Fill upon patient request. ibuprofen 400 mg tablet 400 mg PO Q6H PRN (Reason: pain) Qty: 14 0RF alum-mag hydroxide-simeth [Maalox Advanced] 200-200-20 mg/5 mL suspension 5 ml PO 5XD PRN (Reason: dyspepsia) Qty: 3000 0RF Rx Instructions: administer between meals and at bedtime fluticasone propionate 50 mcg/actuation spray,suspension intranasal ergocalciferol (vitamin D2) [Vitamin D2] 1,250 mcg (50,000 unit) capsule 1,250 mcg PO QWEEK cyclobenzaprine 5 mg tablet 5 mg PO TID PRN pantoprazole 40 mg tablet,delayed release (DR/EC) 40 mg PO DAILY atorvastatin 20 mg tablet 20 mg PO DAILY metoprolol tartrate 25 mg tablet 25 mg PO DAILY nitroglycerin 0.4 mg tablet, sublingual sublingual cetirizine 10 mg tablet 10 mg PO DAILY naproxen 500 mg tablet 500 mg PO BID furosemide 20 mg tablet 20 mg PO DAILY Discharge Date/Time: 06/13/25 23:19
[2025-06-13 17:36] VITALS: BP 144/91; PULSE 75; RESP 16; TEMP 36.4; O2SAT 99; BMI 33.9
[2025-06-13 17:38] LABS: MANUAL DIFF FLAG NO
--- NOTE | 2025-06-13 17:39 | ECG_ITS ---
Test Reason : MAUSEA Blood Pressure : */* mmHG Vent. Rate : 73 BPM Atrial Rate : 73 BPM P-R Int : 142 ms QRS Dur : 80 ms QT Int : 404 ms P-R-T Axes : 49 39 46 degrees QTcB Int : 445 ms Normal sinus rhythm Cannot rule out Anterior infarct , age undetermined , can be related to body habitus and lead placement Abnormal ECG When compared with ECG of 30-May-2025 11:33, No significant change was found Referred By: Kelsie Humphrey Electronically Signed By: FAVIAN TRENT
[2025-06-13 17:55] LABS: Alanine Aminotransferase 15 U/L (0-31); Albumin Level 4.5 g/dL (3.5-5.0); Alkaline Phosphatase 132 U/L (39-117); Anion Gap 12 (12-20); Aspartate Amino Transferase 18 U/L (5-31); Blood Urea Nitrogen 10 mg/dL (9-16); Calcium 9.3 mg/dL (8.4-10.2); Carbon Dioxide 27 mmol/L (22-29); Chloride 105 mmol/L (96-108); Creatinine Clr Calc Pharmacy 103.3; Estimated Glomerular Filt Rate > 60; Lipase 12 U/L (8-78); Magnesium 1.9 mg/dL (1.6-2.6); Potassium 4.1 mmol/L (3.3-5.1); Sodium 140 mmol/L (135-145); Total Protein 7.4 g/dL (6.5-8.0)
[2025-06-13 17:59] LABS: Hematocrit 39.5 % (37.0-47.0); Hemoglobin 13.2 g/dl (12.0-16.0); Imm Gran Abs Auto 0.09 X10*3/uL (0.00-0.03); Imm Gran Pct Auto 0.9 % (0.0-0.4); Lymphocytes Absolute Auto 3.0 X10*3/uL (1.2-4.9); Mean Corpuscular HGB Conc 33.4 g/dl (31.0-35.0); Mean Corpuscular Hemoglobin 32.8 pg (27.0-33.0); Mean Corpuscular Volume 98.3 fL (80.0-98.0); NRBC Abs Auto 0.000 X10*3/uL (0.0-0.012); NRBC Pct Auto 0.0 /100WBC (0.0-0.2); Platelet Count 231 X10*3/uL (160-400); Red Blood Count 4.02 X10*6/uL (4.20-5.50); White Blood Count 10.2 X10*3/uL (4.8-10.8)
== END 2025-06-13 23:19 | disposition left against medical advice (07) ==
PROVIDERS: Physician Assistant; Emergency Provider Emergency Medicine; PCP Family Medicine
DX: R10.9 Unspecified abdominal pain (principal); Z79.899 Other long term (current) drug therapy
CPT/HCPCS: 36415; 80048; 80076; 83690; 83735; 85025; 93005; 99283

== ENCOUNTER → 2025-06-13 17:39 | Outpatient (BNV) | payer OTHER, SELFPAY | PROVIDERS: Emergency Provider Emergency Medicine; PCP Family Medicine; Visit Provider Internal Medicine | DX: R94.31 Abnormal electrocardiogram [ECG] [EKG] (principal); R11.0 Nausea | CPT/HCPCS: 93010 ==

== ENCOUNTER 2025-06-14 07:48 | Emergency (ER) | payer OTHER, SELFPAY ==
--- OUTSIDE RECORDS SUMMARY | 2023-11-26 06:38 | XMS_ITS | Continuity of Care Document ---
Author Organization [facility] Address [address] [place] [address] Phone Care Team Providers Care Avionics Test Technician Name Role Phone Levy Miramontes MD Unavailable Unavailable Allergies, Adverse Reactions, Alerts Substance Reaction Status Criticality trimethoprim Active No Information sulfamethoxazole Active No Informat ion roxithromycin Active No Information telithromycin Active No Information ofloxacin Active No Information ciprofloxacin Active No Information clarithromycin Active No Informatio n moxifloxacin Active No Information dronedarone Active No Information dofetilide Active No Information flecainide Active No Information procainamide Active No Information disopyramide Active No Information ibutilide Active No Information amiodarone Active No Information quinidine Active No Information sotalol Active No Information bepridil Active No Information ranolazine Active No Information sevoflurane Active No Information duloxetine Active No Information pregabalin Active No Information promethazine Active No Information metoclopramide Active No Informatio n tramadol Active No Information Medications Medication Instructions Dosage Effective Dates (start - stop) Status Comments folic acid 1 mg tablet take 1 tablet by oral route every day 1 MG - Active cyclobenzaprine 10 mg tablet take 1 tablet by oral route 3 times every day 10 MG - Active Vitamin B-12 100 mcg tablet - Active Procedures Procedure Date OV,F/U,EXPAND PROB HX,SF OV, NEW, DETAIL, DETAIL, Advance Directives Directive Yes / No Effective Date File Name No Information Encounters Encounter Description Practice Location Reason(s) For Visit Diagnoses Date Provider Providers Copied on Encounter [facility], [address] [place] [address], [facility], tel: [phone] [facility] No Information 4 Spomar Levy. [address], [address], [place], [place], [address] [place] [address] , . tel: [phone] OV,F/U,EXPAN D PROB HX,SF [facility], [address] [place] [address], [facility], tel: [phone] [facility] Body mass index (BMI) 40.0-44.9, adultNeck pain 3 Spomar Levy. [address], [address] , [place], [place], [address] [place] [address] , [place]. tel: [phone] Referring Provider: Randall Licea, [address], [place], [place], [facility]. tel:[phone] [facility], [address] [place] [address], [facility], tel: [phone] [facility] Cervical radiculopathyNumbnes s and tingling of upper extremityParesthesia of skin March-0 3 Spomar Levy. [address], [address] , [place], [place], [id number] , [place]. tel: [phone] OV, NEW, DETAIL, DETAIL, [facility], [address] [place] [address], [facility], tel: [phone] [facility] Neck painCervical radiculopathyNumbnes s and tingling of upper extremityParesthesia of skin Feb-0 2- 3 Spomar Levy. [address], [address] , [place], [place], [id number] , [place]. tel: [phone] Referring Provider: Randall Licea, [address], [facility], [place], [facility]. tel:[phone] Family History Family Member Type Diagnosis Age At Onset No Information Payers Payer name Insurance type Covered democrat ID Authoriza tion(s) [place]ina [employer] [place] [id number] Social History Type Description Quantity Date Captured Comments Alcohol Use Details Unknown Caffeine Use Details Unknown Tobacco Use Status Smoking Status No Information Sex Female Chief Complaint And Reason For Visit No Information Reason For Referral Reason For Referral No Information Plan Of Treatment Date Type Action Status Goal Tobacco cessation counseling completed Goal Lifestyle education regardin g diet completed Referral Referred To: Ismael BRIGGS, Kofi Esquivel [address] [facility]
[address] [place], [address] [phone] Ordered: Referrals: Physical Medicine and Rehabilitation. Ismael BRIGGS, Kofi Nuñez Evaluate and treat ordered Referral Ordered: MRI Cervical Spine Without Contrast Appointment date/timeframe: 03/05/2023 ordered Referral Ordered: Cervical Spine AP/LAT/FLEX/EXT (CPT: 88640) Appointment date/timeframe: 6 Weeks ordered Patient Education cyclobenzaprine 10 mg t ablet completed Patient Education cyclobenzaprine 10 mg t ablet completed History Of Present Illness Encounter Date Complaint History Of Prese nt Illness No Information Functional Status Date Functional Assessmen t No Information Instructions Date Instruction Additional Infor mation Lifestyle education regarding di et Related to Body mass index [BMI] 40.0-44.9, adult Assessments Type Assessment Date No Information Patient Care Teams Name Effective Dates (start - stop) Status Members No Information
--- NOTE | ~2025-06-14 | CT_ITS ---
EXAMINATION: CT ABDOMEN PELVIS WITH IV CONTRAST HISTORY: RUQ abdominal pain, nausea COMPARISON: Comparison is made with the prior examination dated 03/21/2025. TECHNIQUE: CT scan of the abdomen and pelvis was performed following administration of 85 mL Omnipaque 350 using standard departmental protocol. Coronal and sagittal reformatted images were generated and reviewed. Oral contrast material was not administered at the request of the referring physician. This CT exam was performed with one or more of the following dose reduction techniques: automated exposure control, adjustment of the mA and/or kV according to patient size, use of iterative reconstruction technique. DLP: 776 mGy-cm FINDINGS: LOWER CHEST: The visualized lung bases are clear. There is no pleural effusion. A portion of a pacemaker is seen with the lead extending anterior to the sternum. CARDIOVASCULATURE: The heart is normal in size. There is no pericardial effusion. LIVER: The liver is normal in size and contour. Subcentimeter hypodensities are again noted in the left lobe which likely represent cysts. The hepatic and portal veins are patent. GALLBLADDER / BILE DUCTS: The gallbladder is unremarkable. There is no intra or extrahepatic biliary ductal dilatation. SPLEEN: The spleen is normal in size. No focal splenic lesion is identified. PANCREAS: The pancreas is unremarkable in appearance. ADRENAL GLANDS: Within normal limits. KIDNEYS/RETROPERITONEUM: No renal calculi are identified. There is no hydronephrosis. No renal masses are identified. LYMPH NODES: No abdominal or pelvic lymphadenopathy. VASCULATURE: The abdominal aorta is normal in caliber. MESENTERY/PERITONEUM: No free fluid. No masses. There is no free intraperitoneal gas. STOMACH: The stomach is unremarkable. SMALL BOWEL: The small bowel is normal in caliber. COLON: The colon is collapsed. APPENDIX: The appendix is surgically absent. URINARY BLADDER/PELVIC ORGANS: The urinary bladder is unremarkable. IUD is noted in the endometrial cavity of the chest. There is no adnexal mass. BONES / SOFT TISSUES: There is degenerative disc disease of the spine. There is slight anterolisthesis of L4 on L5. CT/CT abdomen pelvis w IV con IMPRESSION: No acute abnormality is identified. Electronically signed by: Kwabena De La Garza MD 06/14/2025 10:52 AM EDT RP
[2025-06-14 07:56] VITALS: BP 144/86; PULSE 80; RESP 18; TEMP 36.6; O2SAT 98; BMI 45.0
--- NOTE | 2025-06-14 07:58 | ECG_ITS ---
Test Reason : abd pain Blood Pressure : */* mmHG Vent. Rate : 76 BPM Atrial Rate : 76 BPM P-R Int : 136 ms QRS Dur : 80 ms QT Int : 396 ms P-R-T Axes : 58 50 45 degrees QTcB Int : 445 ms Normal sinus rhythm Normal ECG When compared with ECG of 13-Jun-2025 17:45, No significant change was found Referred By: Generic ED Physician Electronically Signed By: FAVIAN TRENT
[2025-06-14 08:34] LABS: MANUAL DIFF FLAG NO
[2025-06-14 08:49] LABS: Hematocrit 39.6 % (37.0-47.0); Hemoglobin 13.5 g/dl (12.0-16.0); Imm Gran Abs Auto 0.03 X10*3/uL (0.00-0.03); Imm Gran Pct Auto 0.3 % (0.0-0.4); Lymphocytes Absolute Auto 2.3 X10*3/uL (1.2-4.9); Mean Corpuscular HGB Conc 34.1 g/dl (31.0-35.0); Mean Corpuscular Hemoglobin 33.3 pg (27.0-33.0); Mean Corpuscular Volume 97.8 fL (80.0-98.0); NRBC Abs Auto 0.000 X10*3/uL (0.0-0.012); NRBC Pct Auto 0.0 /100WBC (0.0-0.2); Platelet Count 237 X10*3/uL (160-400); Red Blood Count 4.05 X10*6/uL (4.20-5.50); White Blood Count 10.1 X10*3/uL (4.8-10.8)
[2025-06-14 08:55] LABS: Alanine Aminotransferase 17 U/L (0-31); Albumin Level 4.5 g/dL (3.5-5.0); Alkaline Phosphatase 131 U/L (39-117); Anion Gap 11 (12-20); Aspartate Amino Transferase 20 U/L (5-31); Blood Urea Nitrogen 12 mg/dL (9-16); Calcium 9.5 mg/dL (8.4-10.2); Carbon Dioxide 28 mmol/L (22-29); Chloride 107 mmol/L (96-108); Creatinine Clr Calc Pharmacy 118.6; Estimated Glomerular Filt Rate > 60; Lipase 13 U/L (8-78); Potassium 4.4 mmol/L (3.3-5.1); Sodium 142 mmol/L (135-145); Total Protein 7.3 g/dL (6.5-8.0)
[2025-06-14 09:02] LABS: Troponin-I High Sensitivity < 2.7 ng/L (<3.5-17.0)
--- NOTE | 2025-06-14 09:05 | ED_ITS ---
HPI - General Adult General Chief complaint: Abdominal Pain Stated complaint: Abd, Weak Time Seen by Provider: 06/14/25 08:59 Source: patient and family (patient's ) Mode of arrival: ambulatory Limitations: no limitations History of Present Illness ED Provider: Sary Bradford PA-C HPI narrative: Patient is a 44 year old assigned female at with a history of high cholesterol presenting to the emergency department today with abdominal pain. Patient states that she has had right upper quadrant abdominal pain for the last 5 days that radiates into her back and is not getting better. Patient denies any dizziness, lightheadedness, nausea, vomiting, fever, chills, blurry vision, double vision, loss of vision, chest pain, difficulty breathing, shortness of breath, back pain, night sweats, pain with urination, increased urinary frequency, increased urinary urgency, blood in her urine or stool, syncope or a near syncopal episode, recent trauma or falls, bowel incontinence, bladder incontinence, or any other complaints at this time. Onset (ago): day(s) (5) Relieving factors: none Exacerbating factors: none Associated symptoms: denies other symptoms Treatments prior to arrival: none Related Data Home Medications ?Medication ?Instructions ?Recorded ?Confirmed atorvastatin 20 mg tablet 20 mg PO DAILY 04/11/25 cetirizine 10 mg tablet 10 mg PO DAILY 04/11/25 cyclobenzaprine 5 mg tablet 5 mg PO TID PRN 04/11/25 ergocalciferol (vitamin D2) 1,250 1,250 mcg PO QWEEK 0 04/11/25 mcg (50,000 unit) capsule (Vitamin D2) fluticasone propionate 50 spray intranasal 04/11/25 mcg/actuation nasal spray,suspension furosemide 20 mg tablet 20 mg PO DAILY 04/11/25 metoprolol tartrate 25 mg tablet 25 mg PO DAILY naproxen 500 mg tablet 500 mg PO BID 04/11/25 nitroglycerin 0.4 mg sublingual mg sublingual 04/11/25 tablet pantoprazole 40 mg tablet,delayed 40 mg PO DAILY 04/11 release Previous Rx's ?Medication ?Instructions ?Recorded ibuprofen 400 mg tablet 400 mg PO Q6H PRN pain #14 t abs 04/16/25 oxycodone 5 mg tablet 5 mg PO Q6H PRN pain #10 tab s 04/16/25 aluminum-mag hydroxide-simethicone 5 ml PO 5XD PRN dys pepsia #3,000 mL 06/14/25 200 mg-200 mg-20 mg/5 mL oral susp (Maalox Advanced) Allergies Allergy/AdvReac Type Severity Reaction Status Date / Time metoclopramide (From Reglan) Allergy Unresponsiv Verified 06/14/25 07:58 e ondansetron (From Zofran) Allergy Unresponsiv Verified 06/14/25 07:58 e tramadol Allergy Agitated Verified 06/14/25 07:58 Review of Systems 2 Constitutional: Constitutional: Reports no additional constitutional complaints, Denies chills, Denies fever(s) and Denies night sweats Eyes: Eyes: Reports no additional eye complaints, Denies blurry vision, Denies change in vision, Denies diplopia, Denies eye discharge, Denies loss of vision and Denies eye pain ENT: Denies dizziness Cardiovascular: Cardiovascular: Reports no additional cardiovascular complaints, Denies chest pain, Denies lightheadedness, Denies Loss of Consciousness and Denies dyspnea Respiratory: Respiratory: Reports no additional respiratory complaints and Denies dyspnea Gastrointestinal: Gastrointestinal: Reports no additional gastrointestinal complaints, Reports abdominal pain, Denies melena, Denies hematochezia, Denies change in bowel habits and Denies change in stool character Genitourinary: Genitourinary: Denies hematuria, Denies urinary frequency, Denies dysuria, Denies urinary incontinence, Denies urinary hesitancy and Denies urinary urgency Musculoskeletal: Musculoskeletal: Reports no additional musculoskeletal complaints, Denies numbness and Denies tingling Neurologic: Denies dizziness, Denies loss of vision, Denies numbness and Denies tingling Psychiatric: Psychiatric: Reports no additional psychiatric complaints Endocrine: Endocrine: Reports no additional endocrine complaints Hematologic/Lymphatic: Hematologic/Lymphatic: Reports no additional hematologic/lymphatic complaints Allergic/Immunologic: Allergic/Immunologic: Reports no additional allergic/immunologic complaints PMFSH Past Medical History Attestation statement: The following information was validated with the patient. Source: old records reviewed and nursing notes reviewed Social History Social History Alcohol intake: current Alcohol intake frequency: a few times a month Patient Tobacco Use Status: Current someday Tobacco user Tobacco use type: Cigarette Current occupational status: unemployed Physical Exam ED Vital Signs: Vital Signs - 24 hr 06/14/25 07:56 06/14/25 10:15 06/14/25 11:24 Temperature 98 F 97.9 F 97.9 F Pulse Rate 80 64 77 Respiratory Rate 18 16 20 Blood Pressure 144/86 H 109/56 L 168/83 H Pulse Oximetry 98 97 99 Oxygen Delivery Method Room Air Room Air Room Air BMI result Body Mass Index 45.0 Const General: cooperative, no acute distress, alert and awake Nutritional Appearance: well nourished Orientation/consciousness: patient oriented x3 HENMT Head: Yes normal to inspection and Yes atraumatic Ears: hearing grossly normal bilaterally and external ears normal General nose exam: Normal external nose present, no nasal discharge noted and no epistaxis Face and sinus: Yes normal facial exam, No abrasion and No laceration Mouth: Normal oral and palatal mucosa present, no drooling and no muffled voice Eyes General: appearance normal, both eyes and all related structures Periorbital: periorbital findings normal Eyelids: Yes eyelids normal Conjunctivae: conjunctivae normal Pupils: Equal, round and reactive pupils present EOM: EOMs intact bilaterally Neck Neck: Yes normal visual inspection, Yes full ROM and Yes no lymphadenopathy Resp Effort & Inspection: normal respiratory effort and able to speak in complete sentences GI Palpation (GI): Soft to palpation, not firm, Tenderness to palpation present (GI) in the RUQ, no guarding and not rigid Neuro General: patient oriented x3, moves all extremities and CN's II-XI intact bilaterally Cranial nerves: Yes Equal, round and reactive pupils present Cognition (Neuro): normal cognition Extrem General: Yes normal to inspection, Yes full ROM and Yes capillary refill normal Psych Appearance: grossly normal Mental Status: mental status grossly normal Affect: normal affect Attitude: cooperative Thought process: Normal thought process present Thought content: Normal thought content present Insight: Good insight present (Psych) Medications Administered Discontinued Medications Generic Name Dose Route Start Last Admin Trade Name Freq PRN Reason Stop Dose Admin Iohexol 85 ml 06/14/25 10:39 06/14/25 10:43 Iohexol 350 Mg/Ml 100 Ml Infus..Btl IV 06/14/25 10:40 85 ml ONCE ONE Administration Ketorolac Tromethamine 30 mg 06/14/25 11:17 06/14/25 11:27 Ketorolac Tromethamine 30 Mg/Ml Vial IVPUSH 06/14/25 11:18 30 mg ONCE ONE Administration Morphine Sulfate 4 mg 06/14/25 09:41 06/14/25 10:43 Morphine Sulfate 4 Mg/Ml Cartridge IVPUSH 06/14/25 09:42 4 mg ONCE ONE Administration Protocol Medical Decision Making Medical Decision Making MDM Narrative: Patient is a 44 year old assigned female at with a history of high cholesterol presenting to the emergency department today with abdominal pain. Patient's physical exam was as noted in the physical exam portion of this note with some tenderness to palpation of the right upper abdominal quadrant and otherwise unremarkable. Patient's blood work was unremarkable. Patient's urine showed no acute process. Patient's EKG was unremarkable. Patient's CT abd/pelvis showed no acute process. I explained my physical exam findings as well as all test results to the patient. I answered all questions asked by the patient. Patient is very concerned because she had a sibling and a parent both have pancreatic cancer - there is no evidence at this time of any pancreatic pathology. Patient states that she has a nuclear med test on June 30, follows with [facility] and has an endoscopy + colonoscopy scheduled through them in December of 2025, and she is actively discussing this issue with her primary care provider who is following up on this. Patient also confirmed that she is already taking Pantoprazole 40mg QD. Patient's clinical presentation is most consistent with GERD vs. biliary colic and her work up today did not reveal any EMERGENT process for her symptoms. Patient received IV morphine + Toradol which, upon re-evaluation, she stated it helped her symptoms some. I stressed the importance of the patient taking her medication as directed (either prescribed or as the over the counter packaging recommends). I stressed the importance of the patient following up with her primary care provider and her GI Specialist. I stressed the importance of the patient returning to the emergency department immediately if her symptoms were to worsen or if she were to develop any dizziness, shortness of breath, difficulty breathing, chest pain, blurry vision, loss of vision, nausea, vomiting, abdominal pain, fever, chills, back pain, or any other complaints. Patient and the patient's verbalized agreement and understanding with this treatment plan and discharge. Note: Patient was given [facility] follow up information as she expressed wanting to switch from [facility] in an attempt to get a colonoscopy / endoscopy sooner. Differential Diagnosis Differential Diagnoses: The differential diagnosis associated with the presentation includes Biliary colic Epigastric pain GERD Admission/Observation Consideration of admission/observation: Escalation of care including admission/observation considered Patient would have been admitted to the hospital had her work up had any findings where hospital admission was appropriate and her clinical presentation warranted hospital admission. Lab Data [facility] Lab Attestation statement: I reviewed the patient's lab results. My interpretation of these results are in the [facility] Rationale portion of this note. 06/14/25 08:27 06/14/25 08:27 Labs: Lab Results 06/14/25 06/14/25 Range/Units 08:26 08:27 WBC 10.1 (4.8-10.8) X10*3/uL RBC 4.05 L (4.20-5.50) X10*6/uL Hgb 13.5 (12.0-16.0) g/dl Hct 39.6 (37.0-47.0) % MCV 97.8 (80.0-98.0) fL MCH 33.3 H (27.0-33.0) pg MCHC 34.1 (31.0-35.0) g/dl RDW 13.0 (11.0-16.0) % Plt Count 237 (160-400) X10*3/uL MPV 11.1 (9.4-12.3) fL Immature Gran % (Auto) 0.3 (0.0-0.4) % Neut % (Auto) 68.5 (45-73) % Lymph % (Auto) 22.9 (20-40) % Young % (Auto) 6.0 (2-11) % Eos % (Auto) 1.7 (0-4) % Baso % (Auto) 0.6 (0-2) % Lymph # (Auto) 2.3 (1.2-4.9) X10*3/uL Young # (Auto) 0.6 (0.1-1.2) X10*3/uL Eos # (Auto) 0.2 (0.0-0.4) X10*3/uL Baso # (Auto) 0.1 (0.0-0.2) X10*3/uL Abs Immat Gran (auto) 0.03 (0.00-0.03) X10*3/uL Absolute Neuts (auto) 6.9 (2.0-8.3) x10*3/uL Absolute Nucleated RBC 0.000 (0.0-0.012) X10*3/uL Nucleated RBC % (auto) 0.0 (0.0-0.2) /100WBC Sodium 142 (135-145) mmol/L Potassium 4.4 (3.3-5.1) mmol/L Chloride 107 (96-108) mmol/L Carbon Dioxide 28 (22-29) mmol/L Anion Gap 11 L (12-20) BUN 12 (9-16) mg/dL Creatinine 0.76 (0.5-1.4) mg/dL Estim Creat Clear Calc 118.6 Estimated GFR > 60 Random Glucose 108 (60-115) mg/dL Calcium 9.5 (8.4-10.2) mg/dL Total Bilirubin 0.4 (0.0-1.0) mg/dL Direct Bilirubin 0.2 (0.0-0.5) mg/dL AST 20 (5-31) U/L ALT 17 (0-31) U/L Alkaline Phosphatase 131 H (39-117) U/L Troponin I High Sens < 2.7 (<3.5-17.0) ng/L Total Protein 7.3 (6.5-8.0) g/dL Albumin 4.5 (3.5-5.0) g/dL Lipase 13 (8-78) U/L Influenza Type A (PCR) NEGATIVE (Negative) Influenza Type B (PCR) NEGATIVE (Negative) RSV RNA Qual (PCR) NEGATIVE (Negative) SARS-CoV-2 RNA (RT-PCR) NEGATIVE (Negative) Independent Interpretation I performed an independent interpretation of an: EKG and CT Scan Interpretation: My interpretation is in agreement with the radiologist's impression of this imaging study. L Report Number: [id number]: Total DLP = 776.00 mGy-cm EXAMINATION: CT ABDOMEN PELVIS WITH IV CONTRAST HISTORY: RUQ abdominal pain, nausea COMPARISON: Comparison is made with the prior examination dated 03/21/2025. TECHNIQUE: CT scan of the abdomen and pelvis was performed following administration of 85 mL Omnipaque 350 using standard departmental protocol. Coronal and sagittal reformatted images were generated and reviewed. Oral contrast material was not administered at the request of the referring physician. This CT exam was performed with one or more of the following dose reduction techniques: automated exposure control, adjustment of the mA and/or kV according to patient size, use of iterative reconstruction technique. DLP: 776 mGy-cm FINDINGS: LOWER CHEST: The visualized lung bases are clear. There is no pleural effusion. A portion of a pacemaker is seen with the lead extending anterior to the sternum. CARDIOVASCULATURE: The heart is normal in size. There is no pericardial effusion. LIVER: The liver is normal in size and contour. Subcentimeter hypodensities are again noted in the left lobe which likely represent cysts. The hepatic and portal veins are patent. GALLBLADDER / BILE DUCTS: The gallbladder is unremarkable. There is no intra or extrahepatic biliary ductal dilatation. SPLEEN: The spleen is normal in size. No focal splenic lesion is identified. PANCREAS: The pancreas is unremarkable in appearance. ADRENAL GLANDS: Within normal limits. KIDNEYS/RETROPERITONEUM: No renal calculi are identified. There is no hydronephrosis. No renal masses are identified. LYMPH NODES: No abdominal or pelvic lymphadenopathy. VASCULATURE: The abdominal aorta is normal in caliber. MESENTERY/PERITONEUM: No free fluid. No masses. There is no free intraperitoneal gas. STOMACH: The stomach is unremarkable. SMALL BOWEL: The small bowel is normal in caliber. COLON: The colon is collapsed. APPENDIX: The appendix is surgically absent. URINARY BLADDER/PELVIC ORGANS: The urinary bladder is unremarkable. IUD is noted in the endometrial cavity of the chest. There is no adnexal mass. BONES / SOFT TISSUES: There is degenerative disc disease of the spine. There is slight anterolisthesis of L4 on L5. CT/CT abdomen pelvis w IV con IMPRESSION: No acute abnormality is identified. Electronically signed by: Kwabena De La Garza MD 06/14/2025 10:52 AM EDT Dictated By: Kwabena De La Garza MD Signed By: Electronically signed by Kwabena De La Garza MD 06/14/25 1052 I independently interpreted this EKG and am in agreement with the below findings: Vent. Rate: 76 BPM Atrial Rate: 76 BPM P-R Int: 136 ms QRS Dur: 80 ms QT Int: 396 ms P-R-T Axes: 58 50 45 degrees QTcB Int: 445 ms Normal sinus rhythm Normal ECG When compared with ECG of 13-Jun-2025 17:45, No significant change was found DD/ 0815 Radiology Impression Discussion of test interpretation with radiology: I have reviewed the radiologist's reading. Independent Historian Clinical information obtained from an independent historian. History obtained from or confirmed by: Spouse (Patient's provided additional history and confirmed the history provided by the patient. ) Critical Care Time Critical Care Time Critical Care Time: Yes Total Critical Care Time: 34 Attestation: I spent 34 minutes of Critical Care Time with this patient. This does not include time spent on separately reported billable procedures. Discharge Plan Discharge Clinical Impression: Biliary colic Abdominal pain Qualifiers: Abdominal location: generalized Qualified Code(s): R10.84 - Generalized abdominal pain Patient Disposition: Home, Self-Care Instructions: Biliary Colic (ED), Abdominal Pain (ED) Additional Instructions: Follow up with your primary care provider and the GI team. Complete your outpatient work up as you have scheduled. Return to the emergency department immediately if your symptoms worsen or if you develop any numbness, tingling, dizziness, shortness of breath, difficulty breathing, chest pain, blurry vision, loss of vision, nausea, vomiting, abdominal pain, fever, chills, back pain, or any other complaints. Please see the information below about our Patient Portal. If you are not yet enrolled in the [facility] Patient Portal, you will receive an enrollment email invitation following your visit to any [facility] care setting. You may also self-enroll in the Patient Portal by visiting our website: [email or web address] The following information is required to access the Patient Portal: - Your [facility] Medical Record Number - Your personal home email address (must match what is in your electronic medical record, Registration staff can assist with this) - Name - Date of Capabilities of the Patient Portal: - Message some providers - View upcoming appointments - Access your health summary, medical history, and visit history - View current conditions and allergies - View procedure and lab results - View your medications, including guidelines, side effects, and precautions - Complete pre-appointment questionnaires requested by your provider - Ready summary reports of your office visits and procedures To access the Patient Portal Mobile Ella, follow these directions: - Search [employer] in the Ella Store or [employer] Store - Download the Ella - Search for [facility] - Enter your login/password Prescriptions: New alum-mag hydroxide-simeth [Maalox Advanced] 200-200-20 mg/5 mL suspension 5 ml PO 5XD PRN (Reason: dyspepsia) Qty: 3000 0RF Rx Instructions: administer between meals and at bedtime No Action oxycodone 5 mg tablet 5 mg PO Q6H PRN (Reason: pain) Qty: 10 0RF Rx Instructions: Partial Fill upon patient request. ibuprofen 400 mg tablet 400 mg PO Q6H PRN (Reason: pain) Qty: 14 0RF fluticasone propionate 50 mcg/actuation spray,suspension intranasal ergocalciferol (vitamin D2) [Vitamin D2] 1,250 mcg (50,000 unit) capsule 1,250 mcg PO QWEEK cyclobenzaprine 5 mg tablet 5 mg PO TID PRN pantoprazole 40 mg tablet,delayed release (DR/EC) 40 mg PO DAILY atorvastatin 20 mg tablet 20 mg PO DAILY metoprolol tartrate 25 mg tablet 25 mg PO DAILY nitroglycerin 0.4 mg tablet, sublingual sublingual cetirizine 10 mg tablet 10 mg PO DAILY naproxen 500 mg tablet 500 mg PO BID furosemide 20 mg tablet 20 mg PO DAILY Referrals: [facility] Gastroenterology Services [Provider Group, Gastroenterology] Referral Note: Call to establish and follow up with a GI specialist. Print Language: Latvian
--- OUTSIDE RECORDS SUMMARY | 2025-06-14 09:13 | XMS_ITS | Clinical Summary ---
Author Organization [facility] Address [address] [place] [address] Care Team Providers Care Graphic Pre Press Trades Worker Name Role Phone Unavailable Primary Care Provider [...]
--- OUTSIDE RECORDS SUMMARY | 2025-06-14 09:13 | XMS_ITS | Clinical Summary ---
Author Organization [facility] Address [address] [place] [address] Care Team Providers Care Resource Director Name Role Phone Unavailable Primary Care Provider [...]
--- OUTSIDE RECORDS SUMMARY | 2025-06-14 09:13 | XMS_ITS | Patient Health Record ---
Author Organization [facility] [place] Address [address] [facility] [address] [place] [address] Care Team Providers Care Microbiology Quality Control Technician Name Role Phone Stuart Elizabeth Unavailable [phone] Juanjo Case MD Unavailable Unavailable Allergies Allergen [...] Risk Notes Problem Female urinary stress incontinence (09497585) YOLANDA (stress urinary incontinence, female) (N39.3) Active confirmed Problem Pre-procedure evaluation check (363275801) *Pre-operative examination (Code also - reason for the procedure) (Z01.818) Active confirmed Problem Morbid obesity (041302071) Morbid obesity (E66.01) Active confirmed Problem Old myocardial infarction (7940593) History of HI (myocardial infarction) (I25.2) Active confirmed Problem History of cerebrovascular accident (996280734) History of stroke (Z86.73) Active confirmed Problem Overactive urinary bladder (disorder) (755949907) OAB (overactive bladder) (N32.81) Active confirmed Problem Mammogram - screening (68749525) Visit for screening mammogram (Z12.31) Active confirmed Problem Screening for malignant neoplasm of cervix (procedure) (133468866) Screening for cervical cancer (Z12.4) Active confirmed Problem Human papilloma virus screening (127680049) Screening for HPV (human papillomavirus) (Z11.51) Active confirmed Problem Threatened in third trimester (37976489) Threatened in third trimester (O20.0) 11/09/18 Active confirmed Problem Cardiac pacemaker in situ (475879548) Artificial pacemaker (Z95.0) 11/09/18 Active confirmed Plan Of Treatment Pending Test Test Name Order Date *Screen Mammo b/l w/ Stanley and US if need ed per protocol 08/19/2022 Insurance Providers Payer Name Payer Address Payer Phone Subscriber Number Group Number Insured Name Patient Relationship to Insured Coverage Start Date Coverage End Date [employer] [address] [address] [place] [address] [id number] Joanna Alvarenga Self - patient is the [...]
[2025-06-14 09:17] LABS: Resp Syncy Virus RNA Qual PCR NEGATIVE (Negative); SARS COV2 PCR INHOUSE NEGATIVE (Negative)
[2025-06-14 10:15] VITALS: BP 109/56; PULSE 64; RESP 16; TEMP 36.6; O2SAT 97
[2025-06-14] MEDS: iohexoL 350 MG/ML 100 ML INFUS..BTL 85 ML IV (10:43)
[2025-06-14 11:24] VITALS: BP 168/83; PULSE 77; RESP 20; TEMP 36.6; O2SAT 99
== END 2025-06-14 12:10 | disposition home or self-care (01) ==
PROVIDERS: Emergency Provider Emergency Medicine
DX: K80.50 Calculus of bile duct without cholangitis or cholecystitis without obstruction (principal); R10.2 Pelvic and perineal pain; R10.11 Right upper quadrant pain; R10.84 Generalized abdominal pain; Z03.818 Encounter for observation for suspected exposure to other biological agents ruled out; Z79.899 Other long term (current) drug therapy
CPT/HCPCS: 36415; 74177; 80048; 80076; 83690; 84484; 85025; 87637; 93005; 96374; 96375; 99284; J1885; J2270; Q9967

== ENCOUNTER → 2025-06-14 07:58 | Outpatient (BNV) | payer OTHER, SELFPAY | PROVIDERS: Emergency Provider Emergency Medicine; Visit Provider Internal Medicine | DX: R10.11 Right upper quadrant pain (principal) | CPT/HCPCS: 93010 ==

== ENCOUNTER → 2025-06-14 09:41 | Outpatient (BNV) | payer OTHER, SELFPAY | PROVIDERS: Visit Provider Radiology Diagnostic Radiology | DX: R10.11 Right upper quadrant pain (principal) | CPT/HCPCS: 74177 ==